=== PATIENT | female | born 1970 | race Caucasian/White ===

== ENCOUNTER 2017-05-28 21:26 | Emergency (ER) | payer MEDICAID, OTHER ==
[~2017-05-28] VITALS: Ht 167.6 cm; Wt 55.0 kg
[~2017-05-28 21:26] MED LIST: ALL220TA PO; DICL-86 PO; LORT5TAB PO
[2017-05-28 21:28] VITALS: BP 132/91; PULSE 125; RESP 18; TEMP 99.4; O2SAT 97
[2017-05-28 21:44] VITALS: BP 126/82; PULSE 95; RESP 20; O2SAT 97
[2017-05-28] MEDS ORDERED: ONDANSETRON ODT 4 MG TAB PO ONE (23:30)
[2017-05-28] MEDS ORDERED: HYDROmorphone HCL PF 1 MG/ML VIAL IM ONE (23:30)
--- NOTE | 2017-05-28 23:33 | PD ---
HPI Chief Complaint: Injury Time Seen by Provider: 23:31 Travel History International Travel<30 days: No Contact w/Intl Traveler<30days: No Traveled to known affect area: No History of Present Illness HPI 46-year-old white female right-hand dominant presents emergency Department with complaints of right shoulder pain after injuring her right shoulder her dogs at home this evening. She states that she's unsure of exactly how it happened but she injured her shoulder the 2 dogs. She does report crepitus in her shoulder. She states the pain is severe. Worse with movement. She has some relief with elevating her arm up and remaining still. She denies any numbness, tingling or weakness. No injury to her head, neck or back. PFSH Past Medical History Blood Disorders: Yes (ANEMIA) Cancer: No Cardiovascular Problems: No Diabetes: No Endocrine: No Glaucoma: No Genitourinary: No Hepatitis: No Hiatal Hernia: No Hypertension: No Immune Disorder: No Musculoskeletal: No Reproductive: No Respiratory: No Seizures: Yes ( A CHILD) Thyroid Disease: No Tetanus Vaccination: > 5 Years Influenza Vaccination: No ?: Not LMP: few months : 2 Para: 2 Past Surgical History Abdominal Surgery: Yes (APPENDECTOMY) Appendectomy: Yes (2007) Cardiac Surgery: No Ear Surgery: No Endocrine Surgery: No Eye Surgery: No Genitourinary Surgery: No Gynecologic Surgery: No Oral Surgery: Yes (EGD) Pacemaker: No Thoracic Surgery: No Other Surgery: Yes Social History Alcohol Use: Yes (OCCASIONALLY) Tobacco Use: Yes (OCCASIONALLY) Substance Use: No Allergies-Medications (Allergen,Severity, Reaction): Coded Allergies: No Known Allergies (Verified , 05/28/17) Reported Meds & Prescriptions Reported Meds & Active Scripts Active Lortab (Hydrocodone-Acetaminophen) 5-325 Mg Tab 1-2 Tab PO Q6H PRN Review of Systems Except as stated in HPI: all other systems reviewed are Neg Physical Exam Narrative GENERAL: Well-developed, well-nourished in no apparent distress. Nontoxic appearing. Patient smells of EtOH. HEAD: Normocephalic, atraumatic. EYES: Pupils equal round and reactive. Extraocular motions intact. No scleral icterus. No injection or drainage. ENT: Nose clear. Throat without erythema, tonsillar hypertrophy or exudate. Uvula midline. Airway patent. NECK: Trachea midline. Supple, nontender, moves head freely. No central bony tenderness or spasm. CARDIOVASCULAR: Regular rate and rhythm without murmurs, gallops, or rubs. RESPIRATORY: Clear to auscultation. Breath sounds equal bilaterally. No wheezes , rales, or rhonchi. GASTROINTESTINAL: Abdomen soft, non-tender, nondistended. No hepato-splenomegaly , or palpable masses. No guarding. EXTREMITIES: No clubbing, cyanosis. Examination of the right upper extremity reveals tenderness and ecchymosis to the mid- lateral clavicular region. She complains of pain out into the glenohumeral joint. She is unwilling to manipulate the joint. No pain in the humerus, elbow, forearm, wrist or hand. She has intact median/ulnar/renal nerves. The skin is intact. The left upper extremity as well as lower extremities are without localizing bony tenderness or deformity. BACK: Nontender without deformity. No flank tenderness. NEUROLOGICAL: Awake, alert and oriented x 3 .Cranial nerves grossly intact. Motor and sensory grossly within normal limits. Normal speech. Data Data Last Documented VS Vital Signs Date Time Temp Pulse Resp B/P Pulse Ox O2 Delivery O2 Flow Rate FiO2 05/28/17 21:44 95 20 126/82 97 05/28/17 21:28 99.4 Room Air Orders Clavicle (05/28/17 23:29) Shoulder, Limited(2vws) (05/28/17 23:29) Ice/Cold Pack (05/28/17 23:29) Splint Or Brace Apply/Monitor (05/28/17 23:29) Hydromorphone Pf Inj (Dilaudid Pf Inj) (05/28/17 23:30) Ondansetron Odt (Zofran Odt) (05/28/17 23:30) Sling Cradle Arm (05/28/17 ) MDM Medical Decision Making Medical Screen Exam Complete: Yes Emergency Medical Condition: Yes Medical Record Reviewed: Yes Interpretation(s) Right shoulder: Patient has a displaced distal third clavicular fracture. The glenohumeral joint is intact. Right clavicle: Patient has a displaced third clavicle fracture. Differential Diagnosis MDM: High Differential diagnoses: Fracture, sprain, strain, dislocation, contusion, neurovascular injury Narrative Course Patient given Dilaudid 1 mg IM and Zofran 4 mg by mouth, ice pack and sling. X- ray of the right clavicle and shoulder. X-ray of the right shoulder reveals a distal third mildly displaced clavicular fracture. Patient is placed in a sling. She is aware of the clinical findings and her need for follow-up with orthopedics. Patient given mandatory follow-up. This is right clavicular fracture Diagnosis Primary Impression: Closed right clavicular fracture Qualified Code: S42.031A - Closed displaced fracture of acromial end of right clavicle, initial encounter Patient Instructions: General Instructions, Narcotic given in the ED Additional Instructions: Rest. Ice packs. 3 Advil every 6 hours. Lortab for moderate to severe pain. Sling. Follow-up with orthopedics within the next 3-7 days. Return to the ER for emergencies. Med/Other Pt SpecificInfo: Prescription(s) given Scripts Hydrocodone-Acetaminophen (Lortab)5-325 Mg Tab1-2 Tab PO Q6H PRN (PAIN) #30 TAB Prov:Lashell Moon DO 05/29/17 Disposition: 01 DISCHARGE HOME Condition: Stable Antonio Wilde May 28, 2017 23:33
[2017-05-29] MEDS ORDERED: HYDR-3533 PO (00:18)
--- NOTE | 2017-05-29 00:35 | RADRPT ---
EXAM DATE/TIME: 05/29/2017 00:09 [facility] COMPARISON: No previous studies available for comparison. INDICATIONS : Pt fell and landed on right shoulder. MEDICAL HISTORY : None. SURGICAL HISTORY : Appendectomy. ENCOUNTER: Initial ACUITY: 1 day PAIN SCORE: 8/10 LOCATION: Right Clavicle FINDINGS: There is a fracture of the distal right clavicle with one shaft width inferior displacement of the di stal fracture fragment. The acromioclavicular joint is intact. The glenohumeral joint is intact. CONCLUSION: 1. Fracture right clavicle Scottie Childress MD on May 29, 2017 at 0:32 Board Certified Radiologist. This report was verified electronically.
--- NOTE | 2017-05-29 00:35 | RADRPT ---
EXAM DATE/TIME: 05/29/2017 00:11 [facility] COMPARISON: No previous studies available for comparison. INDICATIONS : Pt fell and landed on right shoulder. MEDICAL HISTORY : None. SURGICAL HISTORY : Appendectomy. ENCOUNTER: Initial ACUITY: 1 day PAIN SCORE: 7/10 LOCATION: Right Shoulder FINDINGS: Right clavicle fracture is present. The acromioclavicular joint is intact. The glenohumeral joint is intact. Bony mineralization is normal. CONCLUSION: 1. Fracture right clavicle Scottie Childress MD on May 29, 2017 at 0:33 Board Certified Radiologist. This report was verified electronically.
[2017-05-29 00:37] VITALS: BP 122/63; RESP 16
== END 2017-05-29 00:38 | disposition home or self-care (01) ==
LOC: NEPD 21:26
DX: S42.031A Displaced fracture of lateral end of right clavicle, initial encounter for closed fracture (principal); X50.0XXA Overexertion from strenuous movement or load, initial encounter; Y92.009 Unspecified place in unspecified non-institutional (private) residence as the place of occurrence of the external cause
CPT/HCPCS: 73000; 73030; 96372; 99284; J1170

== ENCOUNTER 2017-08-03 17:35 | Inpatient (IN) | payer MEDICAID ==
[~2017-08-03] VITALS: Ht 167.6 cm; Wt 58.1 kg
[2017-08-03] VITALS (7 sets, daily range): BP systolic 90–114; BP diastolic 51–66; PULSE 92–103; RESP 16–18; TEMP 98.3–98.8; O2SAT 93–97
[~2017-08-03 17:35] MED LIST changes: -ALL220TA PO; -DICL-86 PO; +HYDR-3533 PO; -LORT5TAB PO
[2017-08-03] MEDS ORDERED: SODIUM CHLORIDE 0.9% FLUSH 10 ML FLUSH IV FLUSH PRN ×2 (18:45→21:45)
--- NOTE | 2017-08-03 18:50 | PD ---
HPI Chief Complaint: Edema Time Seen by Provider: 18:22 Travel History International Travel<30 days: No Contact w/Intl Traveler<30days: No Traveled to known affect area: No History of Present Illness HPI Patient is a 47 year old female with PMH of alcohol abuse presenting with bilateral lower leg edema and swelling in her abdomen. The patient states for the past 10 days her legs have been enlarging and hurting her. Also, the patient states that her "belly looks like she is " and states she knows she is not . She reveals she has loose and yellowish stools. The patient denies nausea, fever, SOB, chest pain, neurological/focal deficits, vomiting, hematemesis, dysphagia, odynophagia, melena, and hematochezia. She states she drinks multiple alcoholic drinks a day. Onset gradual. Timing constant. No dark stool or bloody stool. PMH: Broken right collar bone Social: Multiple drinks a day, smokes tobacco, denies illicit drug use, she states she did take narcotics for her broken collarbone, Traveled to the [facility] in the summer but no other travel outside the country Surgical: appendectomy Meds: Takes NSAIDS on a daily basis PFSH Past Medical History Blood Disorders: Yes (ANEMIA) Cancer: No Cardiovascular Problems: No Diabetes: No Endocrine: No Glaucoma: No Genitourinary: No Hepatitis: No Hiatal Hernia: No Hypertension: No Immune Disorder: No Musculoskeletal: No Reproductive: No Respiratory: No Seizures: Yes ( A CHILD) Thyroid Disease: No ?: Not LMP: DAVID : 2 Para: 2 Past Surgical History Abdominal Surgery: Yes (APPENDECTOMY) Appendectomy: Yes (2007) Cardiac Surgery: No Ear Surgery: No Endocrine Surgery: No Eye Surgery: No Genitourinary Surgery: No Gynecologic Surgery: No Oral Surgery: Yes (EGD) Pacemaker: No Thoracic Surgery: No Other Surgery: Yes Social History Alcohol Use: Yes (DAILY) Tobacco Use: Yes Substance Use: No Allergies-Medications (Allergen,Severity, Reaction): Coded Allergies: No Known Allergies (Verified , 08/03/17) Reported Meds & Prescriptions Reported Meds & Active Scripts Active No Active Prescriptions or Reported Medications Review of Systems Except as stated in HPI: all other systems reviewed are Neg General / Constitutional: No: Fever Psychiatric: Positive: Substance Abuse Physical Exam Narrative GENERAL: Patient's parents and fiance in the room; 47 yo F, moderate distress SKIN: Warm and dry. Mild jaundice HEAD: Atraumatic. Normocephalic. EYES: Pupils equal and round. scleral icterus present. No injection or drainage. ENT: No nasal bleeding or discharge. Mucous membranes pink and moist. NECK: Trachea midline. No JVD. CARDIOVASCULAR: Regular rate and rhythm. RESPIRATORY: No accessory muscle use. Clear to auscultation. Breath sounds equal bilaterally. GASTROINTESTINAL: Abdomen distended, non-tender in all 4 quadrants, No rebound or guarding MUSCULOSKELETAL: Extremities without clubbing, cyanosis. Bilateral lower extremity edema +2. Tender to palpation bilaterally. NEUROLOGICAL: Awake and alert. No obvious cranial nerve deficits. Motor grossly within normal limits. Five out of 5 muscle strength in the arms and legs. Normal speech. No tremors PSYCHIATRIC: Tearful. Labile mood. Data Data Last Documented VS Vital Signs Date Time Temp Pulse Resp B/P (MAP) Pulse Ox O2 Delivery O2 Flow Rate FiO2 08/03/17 19:12 18 97 08/03/17 19:09 103 102/63 (76) Room Air 08/03/17 17:55 98.8 VS reviewed Orders Orders Complete Blood Count With Diff (08/03/17 18:34) Comprehensive Metabolic Panel (08/03/17 18:34) Lipase (08/03/17 18:34) Urinalysis - C+S If Indicated (08/03/17 18:34) Iv Access Insert/Monitor (08/03/17 18:34) Ecg Monitoring (08/03/17 18:34) Oximetry (08/03/17 18:34) Sodium Chloride 0.9% Flush (Ns Flush) (08/03/17 18:45) Alcohol (Ethanol) (08/03/17 18:34) Drug Screen, Random Urine (08/03/17 18:35) Ed Urine Pregnancytest Poc (08/03/17 18:36) Ice/Cold Pack (08/03/17 18:41) Ice/Cold Pack (08/03/17 18:41) Type And Screen (08/03/17 19:01) Red Blood Cells (Rbc) (08/03/17 19:01) Blood Product Administration (08/03/17 19:01) Sodium Chlor 0.9% 250 Ml Inj (Ns 250 Ml (08/03/17 19:15) Ct Abd/Pel W Iv Contrast(Rout) (08/03/17 19:20) Iohexol 350 Inj (Omnipaque 350 Inj) (08/03/17 20:50) Admit Order (Ed Use Only) (08/03/17 21:36) Potassium Chloride (Kcl) (08/03/17 21:45) Labs Laboratory Tests Test 08/03/17 18:45 08/03/17 19:25 White Blood Count 6.2 TH/MM3 Corrected White Blood Count 5.8 TH/MM3 Red Blood Count 1.50 MIL/MM3 Hemoglobin 5.8 GM/DL Hematocrit 17.9 % Mean Corpuscular Volume 119.1 FL Mean Corpuscular Hemoglobin 38.6 PG Mean Corpuscular Hemoglobin Concent 32.4 % Red Cell Distribution Width 24.1 % Platelet Count 106 TH/MM3 Mean Platelet Volume 7.6 FL CBC Comment AUTO DIFF Differential Total Cells Counted 100 Neutrophils % (Manual) 47 % Lymphocytes % 41 % Monocytes % 8 % Eosinophils % 1 % Basophils % 2 % Neutrophils # (Manual) 2.8 TH/MM3 Metamyelocytes 1 % Nucleated Red Blood Cells 7 /100 WBC Differential Comment FINAL DIFF MANUAL Platelet Estimate LOW Platelet Morphology Comment NORMAL Target Cells 1+ Blood Urea Nitrogen 11 MG/DL Creatinine 0.53 MG/DL Random Glucose 100 MG/DL Total Protein 6.5 GM/DL Albumin 2.7 GM/DL Calcium Level 7.9 MG/DL Alkaline Phosphatase 331 U/L Aspartate Amino Transf (AST/SGOT) 557 U/L Alanine Aminotransferase (ALT/SGPT) 71 U/L Total Bilirubin 4.7 MG/DL Sodium Level 138 MEQ/L Potassium Level 3.2 MEQ/L Chloride Level 101 MEQ/L Carbon Dioxide Level 27.9 MEQ/L Anion Gap 9 MEQ/L Estimat Glomerular Filtration Rate 124 ML/MIN Lipase 622 U/L Ethyl Alcohol Level 355 MG/DL Urine Color DEL Urine Turbidity CLEAR Urine pH 5.5 Urine Specific [place] 1.016 Urine Protein TRACE mg/dL Urine Glucose (UA) 100 mg/dL Urine Ketones NEG mg/dL Urine Occult Blood TRACE Urine Nitrite NEG Urine Bilirubin MOD Urine Leukocyte Esterase NEG Urine RBC 0-3 /hpf Urine Squamous Epithelial Cells 6-8 /hpf Microscopic Urinalysis Comment CULT NOT INDICATED Urine Opiates Screen NEG Urine Barbiturates Screen NEG Urine Amphetamines Screen NEG Urine Benzodiazepines Screen NEG Urine Cocaine Screen NEG Urine Cannabinoids Screen NEG MDM Medical Decision Making Medical Screen Exam Complete: Yes Emergency Medical Condition: Yes Differential Diagnosis cirrhosis, hypoalbuminemia, renal failure, Narrative Course CBC & BMP Diagram 08/03/17 18:45 MCV 118 Total Protein 6.5, Albumin 2.7 L, Calcium Level 7.9 L, Alkaline Phosphatase 331 H, Aspartate Amino Transf (AST/SGOT) 557 H, Alanine Aminotransferase (ALT/SGPT) 71 H, Total Bilirubin 4.7 H AST 557 ALT 71 Lipase 622 Albumin 2.7 Alcohol 355 Drug screen william-negative UA: No UTI CT ab/pel: steatohepatosis Admission for PRBC transfusion Hepatobiliary disease/pancreatitis ? alcoholism No fever or leukocytosis d/w Dr Tran Diagnosis Primary Impression: Hyperbilirubinemia Additional Impressions: Pancreatitis Qualified Codes: K85.20 - Alcohol induced acute pancreatitis without necrosis or infection Anemia Qualified Codes: D64.89 - Other specified anemias Alcoholism Admitting Information Admitting Physician Requests: Admit Scripts No Active Prescriptions or Reported Meds Magdaleno Davis MD Aug 03, 2017 18:49
[2017-08-03 18:52] LABS: MEAN CELL VOLUME 119.1 FL (80.0-100.0); MEAN CORPUSCULAR HEMOGLOBIN 38.6 PG (27.0-34.0); MEAN CORPUSCULAR HGB CONC 32.4 % (32.0-36.0); PLATELET COUNT 106 TH/MM3 (150-450); RED CELL DISTRIBUTION WIDTH 24.1 % (11.6-17.2); WHITE BLOOD COUNT 6.2 TH/MM3 (4.0-11.0)
[2017-08-03 18:58] LABS: HEMO FLAGS AUTO DIFF
[2017-08-03 18:59] LABS: HEMATOCRIT 17.9 % (35.0-46.0)
[2017-08-03 19:02] LABS: CHLORIDE 101 MEQ/L (98-107); POTASSIUM 3.2 MEQ/L (3.5-5.1); SODIUM (NA) 138 MEQ/L (136-145)
[2017-08-03 19:06] LABS: ANION GAP 9 MEQ/L (5-15); BICARBONATE 27.9 MEQ/L (21.0-32.0); BLOOD UREA NITROGEN 11 MG/DL (7-18)
[2017-08-03 19:08] LABS: ALT (GPT) 71 U/L (10-53)
[2017-08-03 19:09] LABS: AST (GOT) 557 U/L (15-37); GLOMERULAR FILTRATION RATE 124 ML/MIN (>89)
[2017-08-03 19:10] LABS: TOTAL BILIRUBIN ADULT 4.7 MG/DL (0.2-1.0)
[2017-08-03 19:11] LABS: ALKALINE PHOSPHATASE 331 U/L (45-117)
[2017-08-03 19:14] LABS: ALCOHOL 355 MG/DL (0-5)
[2017-08-03] MEDS ORDERED: SODIUM CHLOR 0.9% 250 ML INJ 250 ML IV ONE (19:15)
[2017-08-03 19:24] LABS: BASOPHILS 2 % (0-2); CORRECTED NUCLEATED RBC 7 /100 WBC (0-0); CORRECTED WBC 5.8 TH/MM3 (4.0-11.0); EOSINOPHILS 1 % (0-4); METAMYELOCYTES 1 % (0-1); NEUTROPHIL # MANUAL DIFF 2.8 TH/MM3 (1.8-7.7); POLYS (SEG NEUTROPHILS) 47 % (16-70); WBC DIFF SAMPLE 100
[2017-08-03 19:25] LABS: PLATELET ESTIMATE SMEAR LOW (NORMAL); PLATELET MORPHOLOGY NORMAL (NORMAL); TARGET CELLS 1+ (NORMAL)
[2017-08-03 19:26] LABS: SCAN/DIFF FINAL DIFF MANUAL
[2017-08-03 19:39] LABS: GLUCOSE,URINE 100 mg/dL (NEG); KETONE, URINE NEG (NEG); NITRITE,URINE NEG (NEG); PH, URINE 5.5 (5.0-8.5)
[2017-08-03 19:46] LABS: BLOOD, URINE TRACE (NEG)
[2017-08-03 19:52] LABS: URINE COLOR AMBER (YELLW/STRAW)
[2017-08-03 19:55] LABS: COMMENT (UR) CULT NOT INDICATED; CULTURE IF INDICATED CULT NOT INDICATED; RBC, URINE 0-3 /hpf (0-3)
[2017-08-03] MEDS ORDERED: IOHEXOL 350 MG/ML 10 ML VIAL (for RAD DIAG) IVCONTRAST ONE (20:50)
--- NOTE | 2017-08-03 21:20 | RADRPT ---
EXAM DATE/TIME: 08/03/2017 20:34 [facility] COMPARISON: No previous studies available for comparison. INDICATIONS : Abdominal and bilateral lower extremity pain. Distention. IV CONTRAST: 100 cc Omnipaque 350 (iohexol) IV ORAL CONTRAST: No oral contrast ingested. RADIATION DOSE: 5.45 CTDIvol (mGy) MEDICAL HISTORY : None SURGICAL HISTORY : Appendectomy. ENCOUNTER: Initial ACUITY: 2 weeks PAIN SCALE: 4/10 LOCATION: Bilateral upper quadrant TECHNIQUE: Volumetric scanning of the abdomen and pelvis was performed. Using automated exposure control and ad justment of the mA and/or kV according to patient size, radiation dose was kept as low as reasonably achievable to obtain optimal diagnostic quality images. DICOM format image data is available electro nically for review and comparison. FINDINGS: Examination of the lung bases demonstrates no abnormality. No pleural fluid is identified. No pulmona ry nodules are present. There is extensive hepatic steatosis with generalized hepatomegaly. The splee n is normal in size and free of focal defects. The gallbladder and pancreas are unremarkable. No intr ahepatic or extrahepatic ductal dilatation is seen. The adrenal glands and kidneys appear normal bila terally. No hydronephrosis or mass lesions are identified. Examination of the pelvis demonstrates no evidence of free fluid or pelvic mass. No abnormally enlarg ed inguinal or retroperitoneal lymph nodes are present. The bladder is unremarkable. CONCLUSION: 1. Hepatomegaly with severe infiltration. No masses are identified Scottie Childress MD on August 03, 2017 at 21:17 Board Certified Radiologist. This report was verified electronically.
[2017-08-03] MEDS ORDERED: OCTREOTIDE INJ 50 MCG/ML AMP IV PUSH ONE (21:45)
[2017-08-03] MEDS ORDERED: NALOXONE HCL 0.4 MG/ML AMP IV PUSH PRN (21:45)
[2017-08-03] MEDS ORDERED: POTASSIUM CHLORIDE 20 MEQ CONTROLLED RELEASE TAB PO ONE (21:45)
[2017-08-03] MEDS ORDERED: OCTREOTIDE INJ 100 MCG/ML VIAL IV PUSH ONE (21:55)
[2017-08-03] MEDS ORDERED: OCTREOTIDE INJ 500 MCG in SODIUM CHLORID 0.9% 500 ML INJ 499.5 ML IV SCH (22:00)
[2017-08-03] MEDS ORDERED: PANTOPRAZOLE INJ 80 MG in SODIUM CHLORIDE 0.9% INJ 35 ML IV ONE (22:36)
[2017-08-03] MEDS: PANTOPRAZOLE INJ 80 MG in SODIUM CHLORIDE 0.9% INJ 100 ML IV SCH (22:57)
[2017-08-04] VITALS (13 sets, daily range): BP systolic 83–125; BP diastolic 51–80; PULSE 78–104; RESP 16–20; TEMP 97.4–98.6; O2SAT 95–100
--- NOTE | 2017-08-04 01:35 | RADRPT ---
EXAM DATE/TIME: 08/04/2017 00:32 [facility] COMPARISON: CLAVICLE RIGHT, May 29, 2017, 0:09. SHOULDER RIGHT LTD (2VWS), May 29, 2017, 0:11. INDICATIONS : Shortness of breath. MEDICAL HISTORY : None. SURGICAL HISTORY : None. ENCOUNTER: Initial ACUITY: 1 day PAIN SCORE: 0/10 LOCATION: Bilateral chest FINDINGS: Lungs are focally clear. No pleural effusion is evident. Cardiomediastinal contours are satisfactory. There's been little interval healing of a right clavicle fracture. CONCLUSION: No acute disease Celestine Moreno MD on August 04, 2017 at 1:33 Board Certified Radiologist. This report was verified electronically.
[2017-08-04 06:33] LABS: MEAN CELL VOLUME 116.3 FL (80.0-100.0); MEAN CORPUSCULAR HEMOGLOBIN 38.5 PG (27.0-34.0); MEAN CORPUSCULAR HGB CONC 33.2 % (32.0-36.0); PLATELET COUNT 87 TH/MM3 (150-450); RED BLOOD COUNT 1.41 MIL/MM3 (4.00-5.30); RED CELL DISTRIBUTION WIDTH 26.9 % (11.6-17.2); WHITE BLOOD COUNT 4.8 TH/MM3 (4.0-11.0)
[2017-08-04 06:40] LABS: POTASSIUM 3.2 MEQ/L (3.5-5.1)
[2017-08-04 06:43] LABS: HEMO FLAGS AUTO DIFF
[2017-08-04 06:47] LABS: HEMATOCRIT 16.4 % (35.0-46.0)
[2017-08-04 07:36] LABS: CORRECTED NUCLEATED RBC 5 /100 WBC (0-0); CORRECTED WBC 4.6 TH/MM3 (4.0-11.0); METAMYELOCYTES 1 % (0-1); NEUTROPHIL # MANUAL DIFF 3.2 TH/MM3 (1.8-7.7); POLYS (SEG NEUTROPHILS) 68 % (16-70); WBC DIFF SAMPLE 100
[2017-08-04 07:37] LABS: TARGET CELLS 2+ (NORMAL)
[2017-08-04 07:38] LABS: PLATELET ESTIMATE SMEAR LOW (NORMAL); PLATELET MORPHOLOGY NORMAL (NORMAL); SCAN/DIFF FINAL DIFF MANUAL
[2017-08-04 07:39] LABS: CALCIUM-PROTEIN CORRECTED 7.8 MG/DL (8.5-10.1)
[2017-08-04] MEDS: PANTOPRAZOLE INJ 80 MG in SODIUM CHLORIDE 0.9% INJ 100 ML IV SCH ×2 (09:24→23:36)
[2017-08-04] MEDS: SODIUM CHLORIDE 0.9% FLUSH 10 ML FLUSH IV FLUSH SCH ×2 (09:25→21:00)
--- NOTE | 2017-08-04 12:42 | HHI.HP ---
[facility] No Primary Care Physician Admission Diagnosis Anemia; Pancreatitis; HypoK; Alcoholism; Steatohepatosis Diagnoses: Chief Complaint: Abdominal pain Travel History International Travel<30 Days: No Contact w/Intl Traveler <30 Da: No Traveled to Known Affected Are: No History of Present Illness This patient is a pleasant 47 show female with minimal past history but drinks quite a bit of liquor daily for at least a decade. She has been with increased abdominal pain for the last 10 days and has associated lower extremity swelling improved with ice. She also has complained of abdominal fullness and distention. She tried to take some ibuprofen and Tums without relief. She has not had any fevers or chills but has been very fatigued. She notes no intestinal bleeding either by emesis or by bowel in the last 10 days, however she did have episode of dark tarry stools while in the hospital. Her hemoglobin has been quite low and actually was 5.8 on arrival. She was supposed to be getting a blood transfusion but felt lightheaded within 10 minutes of the blood transfusion beginning. There is no fever or chills but there was a concern for a transfusion reaction. Patient is agreeable to try again and this is most appropriate given the patient's severe anemia. She is admitted to the hospital for further evaluation of abdominal pain with anemia in a patient with known alcohol dependency. She has also an elevated lipase which may represent some pancreatitis. She has never had this problem before and has not been in the hospital for this. Review of Systems Constitutional: COMPLAINS OF: Fatigue, DENIES: Diaphoretic episodes, Fever, Weight gain, Weight loss, Chills, Dizziness, Change in appetite, Night Sweats Endocrine: DENIES: Abnorml menstrual pattern, Heat/cold intolerance, Polydipsia , Polyuria, Polyphagia Eyes: DENIES: Blurred vision, Diplopia, Eye inflammation, Eye pain, Vision loss , Photosensitivity, Double Vision Ears, nose, mouth, throat: DENIES: Tinnitus, Hearing loss, Vertigo, Nasal discharge, Oral lesions, Throat pain, Hoarseness, Ear Pain, Running Nose, Epistaxis, Sinus Pain, Toothache, Odynophagia Respiratory: DENIES: Apneas, Cough, Snoring, Wheezing, Hemoptysis, Sputum production, Shortness of breath Cardiovascular: COMPLAINS OF: Lower Extremity Edema, DENIES: Chest pain, Palpitations, Syncope, Dyspnea on Exertion, PND, Orthopnea, Claudication Gastrointestinal: COMPLAINS OF: Abdominal pain, Black stools Genitourinary: DENIES: Abnormal vaginal bleeding, Dysmenorrhea, Dyspareunia, Sexual dysfunction, Urinary frequency, Urinary incontinence, Urgency, Hematuria , Dysuria, Nocturia, Vaginal discharge Musculoskeletal: DENIES: Joint pain, Muscle aches, Stiffness, Joint Swelling, Back pain, Neck pain Integumentary: DENIES: Abnormal pigmentation, Pruritus, Rash, Nail changes, Breast masses, Breast skin changes, Nipple discharge Hematologic/lymphatic: DENIES: Bruising, Lymphadenopathy Immunologic/allergic: DENIES: Eczema, Urticaria Neurologic: DENIES: Abnormal gait, Headache, Localized weakness, Paresthesias, Seizures, Speech Problems, Tremor, Poor Balance Psychiatric: DENIES: Anxiety, Confusion, Mood changes, Depression, Hallucinations, Agitation, Suicidal Ideation, Homicidal Ideation, Delusions Except as stated in HPI: all other systems reviewed are Neg Past Family Social History Past Medical History Denies Past Surgical History Appendectomy Patellar surgery Reported Medications Denies prescription medications Allergies: Coded Allergies: No Known Allergies (Verified , 08/03/17) Active Ordered Medications Reviewed in the EMR Family History Mother is alive and well, father at 70 and had a stroke and heart attack Social History but lives with her current fianc, not working, drinks vodka daily for the last 10 years, tobacco half a pack daily for the last 10 years at least Physical Exam Vital Signs Vital Signs Date Time Temp Pulse Resp B/P (MAP) Pulse Ox O2 Delivery O2 Flow Rate FiO2 08/04/17 12:00 98.4 87 18 122/77 (92) 96 08/04/17 08:00 98.0 81 18 125/80 (95) 96 08/04/17 05:30 97.9 83 20 108/77 (87) 95 08/04/17 05:09 97.4 77 16 117/66 (83) 100 08/04/17 03:00 80 16 97/65 (76) 99 Nasal Cannula 2.00 08/04/17 01:00 82 18 93/51 (65) 100 Nasal Cannula 2.00 08/04/17 00:45 82 18 83/58 (66) 100 Nasal Cannula 2.00 08/04/17 00:30 18 100 Nasal Cannula 2.00 08/04/17 00:30 78 18 93/54 (67) 99 Nasal Cannula 2.00 08/04/17 00:15 98.0 82 20 95/53 (67) 99 Nasal Cannula 2.00 08/04/17 00:10 97.5 98 20 102/56 98 08/04/17 00:10 97.5 98 20 102/56 (71) 98 Room Air 08/04/17 00:01 104 20 101/60 (74) 98 Room Air 08/03/17 23:46 102 18 100/52 (68) Room Air 08/03/17 23:31 98.3 98 18 104/63 (77) 96 Room Air 08/03/17 22:21 92 18 90/51 (64) 93 Room Air 08/03/17 21:00 94 18 101/64 (76) 94 Room Air 08/03/17 19:12 18 97 08/03/17 19:09 103 18 102/63 (76) 97 Room Air 08/03/17 18:48 96 08/03/17 17:55 98.8 101 16 114/66 (82) 97 Physical Exam GENERAL: well-developed s a well-nourished, well-developed patient, complaining of pain in the abdomen and feet SKIN: Jaundice HEAD: Atraumatic. Normocephalic. No temporal or scalp tenderness. EYES: Pupils equal round and reactive. Extraocular motions intact. Mildly icteric. No injection or drainage. ENT: Nose without bleeding, purulent drainage or septal hematoma. Throat without erythema, tonsillar hypertrophy or exudate. Uvula midline. Airway patent. NECK: Trachea midline. No JVD or lymphadenopathy. Supple, nontender, no meningeal signs. CARDIOVASCULAR: Regular rate and rhythm without murmurs, gallops, or rubs. RESPIRATORY: Clear to auscultation. Breath sounds equal bilaterally. No wheezes , rales, or rhonchi. GASTROINTESTINAL: Abdomen soft, non-tender, is distended I do not appreciate a fluid wave, good bowel sounds gross hepatomegaly, or palpable masses. No guarding. MUSCULOSKELETAL: Extremities without clubbing, cyanosis, or edema. No joint tenderness, effusion, or edema noted. No calf tenderness. Negative Homans sign bilaterally. NEUROLOGICAL: Awake and alert. Cranial nerves II through XII intact. Motor and sensory grossly within normal limits. Five out of 5 muscle strength in all muscle groups. Normal speech. Laboratory Laboratory Tests Test 08/03/17 18:45 08/03/17 19:25 08/04/17 06:05 White Blood Count 6.2 4.8 Corrected White Blood Count 5.8 4.6 Red Blood Count 1.50 1.41 Hemoglobin 5.8 5.4 Hematocrit 17.9 16.4 Mean Corpuscular Volume 119.1 116.3 Mean Corpuscular Hemoglobin 38.6 38.5 Mean Corpuscular Hemoglobin Concent 32.4 33.2 Red Cell Distribution Width 24.1 26.9 Platelet Count 106 87 Mean Platelet Volume 7.6 7.8 CBC Comment AUTO DIFF AUTO DIFF Differential Total Cells Counted 100 100 Neutrophils % (Manual) 47 68 Lymphocytes % 41 26 Monocytes % 8 5 Eosinophils % 1 Basophils % 2 Neutrophils # (Manual) 2.8 3.2 Metamyelocytes 1 1 Nucleated Red Blood Cells 7 5 Differential Comment FINAL DIFF MANUAL FINAL DIFF MANUAL Platelet Estimate LOW LOW Platelet Morphology Comment NORMAL NORMAL Target Cells 1+ 2+ Blood Urea Nitrogen 11 10 Creatinine 0.53 0.53 Random Glucose 100 86 Total Protein 6.5 6.2 Albumin 2.7 Calcium Level 7.9 7.3 Alkaline Phosphatase 331 Aspartate Amino Transf (AST/SGOT) 557 Alanine Aminotransferase (ALT/SGPT) 71 Total Bilirubin 4.7 Sodium Level 138 139 Potassium Level 3.2 3.2 Chloride Level 101 102 Carbon Dioxide Level 27.9 26.0 Anion Gap 9 11 Estimat Glomerular Filtration Rate 124 124 Lipase 622 Ethyl Alcohol Level 355 Urine Color DEL Urine Turbidity CLEAR Urine pH 5.5 Urine Specific [place] 1.016 Urine Protein TRACE Urine Glucose (UA) 100 Urine Ketones NEG Urine Occult Blood TRACE Urine Nitrite NEG Urine Bilirubin MOD Urine Leukocyte Esterase NEG Urine RBC 0-3 Urine Squamous Epithelial Cells 6-8 Microscopic Urinalysis Comment CULT NOT INDICATED Urine Opiates Screen NEG Urine Barbiturates Screen NEG Urine Amphetamines Screen NEG Urine Benzodiazepines Screen NEG Urine Cocaine Screen NEG Urine Cannabinoids Screen NEG Protein Corrected Calcium 7.8 Result Diagram: 08/04/1760408/04/17604 Imaging Last Impressions Chest X-Ray 08/04/17 0000 Signed Impressions: Service Date/Time: Friday, August 04, 2017 00:32 - CONCLUSION: No acute disease Celestine Moreno MD Abdomen/Pelvis CT 08/03/17 1920 Signed Impressions: Service Date/Time: Thursday, August 03, 2017 20:34 - CONCLUSION: 1. Hepatomegaly with severe infiltration. No masses are identified MD Rc Bearden VTE Risk Assessment Caprinortega VTE Risk Assessment: Mod/High Risk (score >= 2) VTE Pharm Contraindication: Active bleeding Caprini Risk Assessment Model Point Value = 1 Point Value = 2 Point Value = 3 Point Value = 5 Age 41-60 Minor surgery BMI > 25 kg/m2 Swollen legs Varicose veins or History of unexplained or recurrent spontaneous Oral contraceptives or hormone replacement Sepsis (< 1 month) Serious lung disease, including pneumonia (< 1 month) Abnormal pulmonary function Acute myocardial infarction Congestive heart failure (< 1 month) History of inflammatory bowel disease Medical patient at bed rest Age 61-74 Arthroscopic surgery Major open surgery (> 45 min) Laparoscopic surgery (> 45 min) Malignancy Confined to bed (> 72 hours) Immobilizing plaster cast Central venous access Age >= 75 History of VTE Family history of VTE Factor V Leiden Prothrombin [id number] Lupus anticoagulant Anticardiolipin antibodies Elevated serum homocysteine Heparin-induced thrombocytopenia Other congenital or acquired thrombophilia Stroke (< 1 month) Elective arthroplasty Hip, pelvis, or leg fracture Acute spinal cord injury (< 1 month) Prophylaxis Regimen Total Risk Factor Score Risk Level Prophylaxis Regimen 0-1 Low Early ambulation 2 Moderate Order ONE of the following: *Sequential Compression Device (SCD) *Heparin 5000 units SQ BID 3-4 Higher Order ONE of the following medications: *Heparin 5000 units SQ TID *Enoxaparin/Lovenox 40 mg SQ daily (WT < 150 kg, CrCl > 30 mL/min) *Enoxaparin/Lovenox 30 mg SQ daily (WT < 150 kg, CrCl > 10-29 mL/min) *Enoxaparin/Lovenox 30 mg SQ BID (WT < 150 kg, CrCl > 30 mL/min) AND/OR *Sequential Compression Device (SCD) 5 or more Highest Order ONE of the following medications: *Heparin 5000 units SQ TID (Preferred with Epidurals) *Enoxaparin/Lovenox 40 mg SQ daily (WT < 150 kg, CrCl > 30 mL/min) *Enoxaparin/Lovenox 30 mg SQ daily (WT < 150 kg, CrCl > 10-29 mL/min) *Enoxaparin/Lovenox 30 mg SQ BID (WT < 150 kg, CrCl > 30 mL/min) AND *Sequential Compression Device (SCD) Assessment and Plan Problem List: (1) Anemia ICD Code: D64.9 - Anemia, unspecified Status: Acute Plan: resume blood transfusion I doubt blood transfusion reaction, there is no fever, hives or shortness of breath, patient symptoms may be due to hypo-tension which was pre-existing as well as her severe anemia requiring transfusion Follow-up with hematology work up for anemia in progress although likely due to gi acute blood loss (dark stools in bathroom), protonix, octreotide (2) Alcoholism ICD Code: F10.20 - Alcohol dependence, uncomplicated Status: Acute Plan: ciwa, thiamine,multivitamin (3) Abdominal pain ICD Code: R10.9 - Unspecified abdominal pain Plan: iv dilaudid for pain, ct, IVF, bowel rest may be due to gi bleed/gastritis/duodenitis/pancreatitis severe hepatomegaly on ct repeat lipase nakul (4) Tobacco dependency ICD Code: F17.200 - Nicotine dependence, unspecified, uncomplicated Plan: Abstinence advised nicotine patch as needed (5) LFT elevation ICD Code: R79.89 - Other specified abnormal findings of blood chemistry Plan: likely to etoh, check hep panel follow trend (6) Elevated lipase ICD Code: R74.8 - Abnormal levels of other serum enzymes Plan: may be due to pancreatitis v gi bleed follow trend (7) Thrombocytopenia ICD Code: D69.6 - Thrombocytopenia, unspecified Plan: Likely due to splenic sequestration from alcoholism Follow trend No need to transfuse platelets at this time we'll follow for further needs (8) Foot pain ICD Code: M79.673 - Pain in unspecified foot Plan: Etiology unclear, may be inflammatory versus neuropathic Continue follow-up Patient using ice for good relief Physician Certification 2 Midnight Certification Type: Admission for Inpatient Services Order for Inpatient Services The services are ordered in accordance with Medicare regulations or non- Medicare payer requirements, as applicable. In the case of services not specified as inpatient-only, they are appropriately provided as inpatient services in accordance with the 2-midnight benchmark. Estimated LOS (days): 3 3 days is the estimated time the patient will need to remain in the hospital, assuming treatment plan goals are met and no additional complications. Post-Hospital Plan: Home (3) Problem Qualifiers (1) Anemia: Qualified Codes: D64.89 - Other specified anemias Sita Gaspar MD Aug 04, 2017 12:42
[2017-08-04] MEDS ORDERED: PANTOPRAZOLE SODIUM 40 MG VIAL IV PUSH SCH (12:45)
[2017-08-04] MEDS ORDERED: HYDROmorphone HCL PF 1 MG/ML VIAL IV PUSH ONE (12:45)
[2017-08-04] MEDS: OCTREOTIDE INJ 500 MCG in SODIUM CHLORID 0.9% 500 ML INJ 499.5 ML IV SCH (12:49)
[2017-08-04] MEDS ORDERED: NICOTINE 14 MG/24 HR PATCH T-DERMAL PRN (13:15)
[2017-08-04] MEDS ORDERED: REMOVE OLD NICODERM (NICOTINE) PATCH T-DERMAL PRN (14:00)
[2017-08-04] MEDS ORDERED: PEG (High)/E-LYTE SOLN 4000 ML BTL PO ONE (18:45)
[2017-08-04] MEDS ORDERED: HYDROCORTISONE SOD SUCCINATE 100 MG VIAL IV PUSH PRN (19:15)
[2017-08-04] MEDS ORDERED: diphenhydrAMINE HCL ELIXIR 12.5 MG/5 ML CUP PO PRN (19:30)
[2017-08-04] MEDS ORDERED: CETIRIZINE HCL 10 MG TAB PO ONE (19:30)
--- NOTE | 2017-08-04 19:39 | MB ---
cc: VALENTINA NEWSOME M.D. DATE OF CONSULTATION 08/04/17 DATE OF [address] Gaspar REASON FOR CONSULTATION Anemia and liver disease. HISTORY OF PRESENT ILLNESS Ms. Abrams is a 47-year-old lady with history of alcohol use, came to the emergency room with increased abdominal pain, increased abdominal distension along with a lower extremity edema, improved with ice. Also, she reports taking a large amount of ibuprofen at times without ___. She denies any fever or chills, weight loss or weight gain. She denies any melena, hematemesis, hematochezia, epistaxis, bri or metrorrhagia. The patient had an episode of dark tarry stool when in the hospital. The patient does not follow up with her regular doctor. She did not have any blood transfusions in the past, was never told that she has anemia. Her father recently from colon cancer. She did have an endoscopy and colonoscopy 5 or 6 years ago. According to her everything was normal. The reason for her having this endoscopy and colonoscopy was because of abdominal pain and questionable appendicitis. She was found to have severe anemia, was given blood transfusion but apparently she had reaction and since then transfusion was stopped, awaiting hematology consultation for clearance. PAST MEDICAL HISTORY Appendectomy, patellar surgery, collar bone fracture. MEDICATIONS None at home. ALLERGIES No known allergies. FAMILY HISTORY Colon cancer father. SOCIAL HISTORY Drinks daily for the last 10 years. Smokes half-a-pack of cigarettes daily. Denies any drug use. REVIEW OF SYSTEMS CONSTITUTIONAL: She denies any fever or chills, weight loss or weight gain. ENT: No alteration in baseline hearing or visual acuity. PULMONARY: Denies any chest pain, shortness of breath. GASTROINTESTINAL: As above. GENITOURINARY: Denies dysuria, hematuria. HEMATOLOGIC: Denies any history of previous anemia or bleeding disorder. SKIN: No alteration in baseline skin lesion. NEUROLOGIC: No history of TIA or CVA kind of symptoms. PHYSICAL EXAMINATION GENERAL: On clinical exam she is sitting comfortable in bed in no acute distress. She is jaundiced and pale. Slight periorbital edema. VITAL SIGNS: Temperature 98.6, pulse 79, respiration 18, blood pressure 108/75 saturation 96. HEENT: PERRLA. Jaundice. NECK: No JVD. No lymphadenopathy. CHEST: Clear to auscultation and palpation. CARDIOVASCULAR: S1-S2. No murmur. ABDOMEN: Abdomen is soft, mildly distended. Bowel sounds are present. CALL CENTER TRAINER: Awake, alert, oriented x3. No focal signs identified. EXTREMITIES: 2+ pedal edema. LABORATORY DATA Her labs are suggestive of potassium of 3.2, total bilirubin 4.7, AST 557, ALT 71 and lipase 622, albumin 2.7. Her hemoglobin on admission 5.8, repeat 5.4. Her platelets 106, MCV 119, white count 6.2. IMAGING STUDIES She had a CT abdomen and pelvis which shows severe fatty infiltration of the liver. IMPRESSION Ms. Abrams is a 47-year-old lady admitted to the hospital with increased abdominal girth, pedal edema most likely secondary to portal hypertension secondary to alcoholic liver disease. Severe anemia most likely secondary to portal hypertension. No indication of active bleed at this time or any other intra-abdominal pathology. Elevated MCV, most likely secondary to alcohol use. RECOMMENDATIONS Clear liquid diet, blood transfusion as recommended by hematology. Upper endoscopy and colonoscopy will be scheduled while the patient will be transfused. She is high risk for anesthesia at this time. Iron level, vitamin B12 and folic acid, supportive care. Monitor LFTs closely. Further recommendation will depend on the patient's clinical status and the above results. Await clearance from hematology. Thank you again. I will continue to follow the patient along with you. Valentina Newsome MD BSB/EO /6:00 PM /7:18 PM
--- NOTE | 2017-08-04 20:27 | MB ---
cc: PROMISE BOLAND M.D.,TINA ELIAS,MICAH George M.D. DATE OF CONSULTATION: 08/04/[address] Tina Gaspar CHIEF COMPLAINT Dr. Gaspar requested consultation for Ms. Abrams regarding questionable transfusion reaction. HISTORY OF PRESENT ILLNESS Ms. Abrams is a 47-year-old woman with history of alcohol abuse. She presents with bilateral lower extremity edema, feet pain, swelling in her abdomen and abdominal distension. She has multiple drinks a day. She denies any bleeding, no melena, no bright red blood per rectum. She had a normal blood pressure. She is mildly tachycardiac, afebrile, with a hemoglobin of 5.8, platelet count 106,000. She had evidence of pancreatitis with elevated lipase. CT scan of the abdomen and pelvis shows steatosis. In stretch machine operator, she was being transfused a unit of packed red cells. She describes being sleepy. She became very sleeping and "fell out." This was interpreted as a reaction to the transfusion. The transfusion was discontinued. Blood bank testing was performed. She is O positive, pretransplant antibody screen was negative, JASE was negative. Post transplant antibody screen was negative and post transplant JASE was negative. She feels well. On further questioning she denies any hives. She denies any itching. She has fatigue. She denies any overt bleeding. She has not been this anemic before. Previous CBC from 2009 was normal. Her hemoglobin was 12.5. Her hemoglobin on admission was 5.8. Hemoglobin at the time of the consultation was 5.4. She is thrombocytopenic with platelet count 106,000 and follow up platelet count is 87,000. Other laboratory parameters include a lipase 622, albumin is decreased at 2.7. Liver function AST is greater than ALT, total bilirubin is 4.7. Potassium is low of 3.2. PT/PTT is not available. Ammonia is normal. She has had no transfusion previously. We discussed our plans to try to transfuse her again as her hemoglobin is significantly low at 5.4. It would help her to tolerate endoscopic procedure. She was agreeable to try. PAST MEDICAL HISTORY 1. Alcohol abuse 2. Steatosis 3. Symptomatic anemia. 4. Thrombocytopenia. PAST SURGICAL HISTORY Appendectomy. Patellar surgery. FAMILY HISTORY Mother is alive and well. Father at age 70 with heart attack and stroke. SOCIAL HISTORY She is , lives with her fiance. She drinks vodka daily for the past 10 years. She smokes half pack a day for at least ten years. She is not currently employed. ALLERGIES NO KNOWN DRUG ALLERGIES. CURRENT MEDICATIONS 1. Pantoprazole. 2. Nicotine patch. 3. Octreotide. PHYSICAL EXAMINATION VITAL SIGNS: Temperature 98.6, heart rate 79, respiratory rate 18, blood pressure 108/75. GENERAL: Ms. Abrams is a pale appearing woman with pallor. She is jaundice. HEENT: Her pupils are round, reactive to light and accommodation. Oropharynx is clear. Neck is supple. Lungs: Clear. Cardiovascular: Reveals normal rate and rhythm. Abdomen: Mildly distended. Lower extremities: No edema, no swelling. Subjective pain, good pulses. Neurologic: Nonfocal. LABORATORY DATA: Significant for hemoglobin of 5.4. ASSESSMENT AND PLAN: Ms. Abrams is a 47 year-old woman with history of alcohol abuse, evidence of hepatomegaly and liver infiltration. The pancreas appears to be unremarkable despite the increase in lipase. The spleen is normal in size. We discussed concern for GI loss of blood and thus the hemoglobin of 5.8. The chronicity of this is not known. The last CBC was from 2009. We discussed transfusing her 2 units of packed red cells overnight so that she may be able to tolerate endoscopic procedure to determine the nature of her anemia. It seems to be macrocytic in nature. She describes pain in her feet. Serum B12 level will be added. I will empirically treat her with B12. She denies any paresthesias, numbness and tingling in the feet, severe pain. We discussed plans to monitor closely for blood transfusion reaction. I am confident that we should be able to transfuse the two units of packed red cells slowly. Premedication with Tylenol and Benadryl at half the dose. Zantac is offered as an antihistamine. I will reserve steroid with hydrocortisone pending blood transfusion reaction or any reaction. We will monitor closely. Nursing will be alerted of symptoms to look out for. Her questions were answered to her satisfaction. The case was discussed with Dr. Boland. MD THELMA Guy/ELOISA /6:50 PM /8:04 PM
[2017-08-04] MEDS: ACETAMINOPHEN 325 MG TAB PO PRN (20:43)
[2017-08-04] MEDS: HYDROmorphone HCL PF 1 MG/ML VIAL IV PUSH PRN (20:51)
[2017-08-05] VITALS (31 sets, daily range): BP systolic 98–143; BP diastolic 45–86; PULSE 50–128; RESP 11–34; TEMP 97.4–99.2; O2SAT 86–100
[2017-08-05] MEDS: ACETAMINOPHEN 325 MG TAB PO PRN (00:42)
[2017-08-05] MEDS: HYDROmorphone HCL PF 1 MG/ML VIAL IV PUSH PRN ×2 (00:43→10:45)
[2017-08-05] MEDS ORDERED: MAGNESIUM CITRATE SOLN 300 ML BTL PO ONE ×2 (00:45→01:00)
[2017-08-05] MEDS ORDERED: LORazepam 2 MG/ML VIAL IV PUSH ONE (03:30)
[2017-08-05] MEDS ORDERED: LORazepam 2 MG/ML VIAL IV PUSH PRN ×5 (03:30)
[2017-08-05] MEDS ORDERED: FLUMAZENIL 0.5 MG/5 ML VIAL IV PUSH PRN (03:30)
[2017-08-05] MEDS ORDERED: LORazepam 1 MG TAB PO PRN (03:30)
[2017-08-05] MEDS ORDERED: HALOPERIDOL LACTATE 5 MG/ML AMP IM PRN (03:30)
[2017-08-05] MEDS ORDERED: LORazepam 2 MG TAB PO PRN (03:30)
[2017-08-05 04:12] LABS: HEMATOCRIT 24.9 % (35.0-46.0); MEAN CELL VOLUME 106.1 FL (80.0-100.0); MEAN CORPUSCULAR HGB CONC 33.9 % (32.0-36.0); PLATELET COUNT 95 TH/MM3 (150-450); RED BLOOD COUNT 2.35 MIL/MM3 (4.00-5.30); RED CELL DISTRIBUTION WIDTH 27.7 % (11.6-17.2); WHITE BLOOD COUNT 5.6 TH/MM3 (4.0-11.0)
[2017-08-05 04:15] LABS: HEMO FLAGS AUTO DIFF
[2017-08-05] MEDS: OCTREOTIDE INJ 500 MCG in SODIUM CHLORID 0.9% 500 ML INJ 499.5 ML IV SCH ×3 (04:58→21:03)
[2017-08-05] MEDS: PANTOPRAZOLE INJ 80 MG in SODIUM CHLORIDE 0.9% INJ 100 ML IV SCH ×4 (04:58→23:25)
[2017-08-05 05:27] LABS: BASOPHILS 1 % (0-2); CORRECTED NUCLEATED RBC 3 /100 WBC (0-0); POLYS (SEG NEUTROPHILS) 71 % (16-70); WBC DIFF SAMPLE 100
[2017-08-05 05:28] LABS: PLATELET ESTIMATE SMEAR LOW (NORMAL); PLATELET MORPHOLOGY NORMAL (NORMAL); SCAN/DIFF FINAL DIFF MANUAL
[2017-08-05 06:11] LABS: BICARBONATE 26.9 MEQ/L (21.0-32.0); CALCIUM-PROTEIN CORRECTED 7.5 MG/DL (8.5-10.1); TOTAL BILIRUBIN ADULT 4.2 MG/DL (0.2-1.0)
[2017-08-05] MEDS ORDERED: GLUCAGON 1 MG/ML VIAL OTHER PRN (08:30)
[2017-08-05] MEDS ORDERED: POTASSIUM CHLOR 20 MEQ PREMIX 100 ML IV SCH (08:30)
[2017-08-05] MEDS ORDERED: DEXTROSE 50% IN WATER 50 ML VIAL(D50) IV PUSH PRN (08:30)
[2017-08-05] MEDS: chlordiazePOXIDE 25 MG CAP PO SCH ×3 (08:55→21:06)
[2017-08-05] MEDS: SODIUM CHLORIDE 0.9% FLUSH 10 ML FLUSH IV FLUSH SCH ×2 (09:00→21:04)
[2017-08-05] MEDS: NS + KCL 20 MEQ INJ 1,000 ML IV SCH ×2 (09:01→23:25)
[2017-08-05] MEDS ORDERED: CALCIUM CHLORIDE INJ 1 GM in SODIUM CHLORIDE 0.9% INJ 100 ML IV ONE (10:00)
[2017-08-05 10:06] LABS: BETA HCG QUANT LESS THAN 1 MIU/ML (0-5)
[2017-08-05] MEDS: INSULIN ASPART SUPPLEMENTAL SCALE SQ SCH ×3 (12:00→21:43)
[2017-08-05] MEDS: levETIRAcetam 500 MG TAB PO SCH ×2 (12:40→21:06)
[2017-08-05] MEDS ORDERED: GADODIAMIDE PF 287 MG/ML 10 ML VIAL (for RAD MRI) IVCONTRAST ONE (13:18)
--- NOTE | 2017-08-05 13:45 | RADRPT ---
EXAM DATE/TIME: 08/05/2017 13:10 [facility] COMPARISON: No previous studies available for comparison. INDICATIONS : Seizures. CONTRAST: 10 cc Omniscan (gadodiamide) IV MEDICAL HISTORY : None. SURGICAL HISTORY : Appendectomy. Left Knee, Right Clavicle ENCOUNTER: Subsequent ACUITY: 2 day PAIN SCORE: 0/10 LOCATION: cranial TECHNIQUE: Multiplanar, multisequence MRI of the brain was performed both prior to and following the administrat ion of paramagnetic contrast. FINDINGS: Moderate motion artifact is present with minimal periventricular white matter changes. There is no r estricted diffusion. There is no abnormal contrast enhancement. Temporal lobes are symmetric. Ventricle size is appropri ate. There are no extra-axial fluid collections appreciated. Posterior fossa is unremarkable. CONCLUSION: Negative MRI of the brain without and with contrast. Seizure focus not identified. Melecio Rodgers MD FACR on August 05, 2017 at 13:43 Board Certified Radiologist. This report was verified electronically.
[2017-08-05 14:06] LABS: FREE T4 0.65 NG/DL (0.76-1.46)
--- NOTE | 2017-08-05 15:11 | HHI.GIFU ---
Subjective Remarks Patient was transferred to the ICU because of 2 grand mal seizure overnight, unclear etiology apparently she had seizure when she was a kid, laying in bed comfortably getting EEG now, no sign of active bleeding, Objective Vitals I&O Vital Signs Date Time Temp Pulse Resp B/P (MAP) Pulse Ox O2 Delivery O2 Flow Rate FiO2 08/05/17 14:00 50 08/05/17 13:45 54 12 125/77 (93) 97 08/05/17 12:00 60 08/05/17 12:00 99.2 60 11 117/58 (77) 97 08/05/17 11:00 62 11 112/75 (87) 95 08/05/17 11:00 62 08/05/17 10:00 68 08/05/17 10:00 68 15 119/81 (94) 98 08/05/17 09:00 74 08/05/17 09:00 74 14 117/79 (92) 99 08/05/17 08:00 74 08/05/17 08:00 99.0 74 15 109/73 (85) 92 08/05/17 07:00 71 08/05/17 07:00 08/05/17 07:00 72 13 98/68 (78) 94 08/05/17 06:10 100 Nasal Cannula 2.00 08/05/17 06:00 72 12 105/68 (80) 100 08/05/17 06:00 72 08/05/17 05:21 74 08/05/17 05:00 72 13 104/70 (81) 100 08/05/17 05:00 72 08/05/17 04:41 74 24 136/61 (86) 94 08/05/17 04:40 86 Nasal Cannula 2.00 08/05/17 04:37 128 34 118/45 (69) 86 08/05/17 04:15 95 Room Air 08/05/17 04:14 99.1 80 18 119/75 (90) 96 08/05/17 01:13 16 08/05/17 01:13 16 08/05/17 00:32 98.4 73 20 123/85 98 08/05/17 00:30 97.4 89 20 119/78 (92) 97 08/05/17 00:02 98.4 65 20 139/86 98 08/05/17 00:00 97.4 73 20 123/74 (90) 98 08/05/17 00:00 98 Nasal Cannula 2.00 08/04/17 20:40 97.8 84 20 116/78 98 08/04/17 16:00 98.6 79 18 108/75 (86) 96 I/O 08/04/17 08/04/17 08/04/17 08/05/17 08/05/17 08/05/17 07:00 15:00 23:00 07:00 15:00 23:00 Intake Total 335 ml 585 ml 1342 ml Output Total 600 ml Balance 335 ml 585 ml 742 ml Intake Oral 448 ml IV Total 250 ml 585 ml 349 ml Packed Cells 75 ml 500 ml Blood Product IV Normal Saline Flush 10 ml 45 ml Output Urine Total 600 ml # Voids 3 # Bowel Movements 5 Laboratory Laboratory Tests Test 08/05/17 04:00 08/05/17 09:30 White Blood Count 5.6 Red Blood Count 2.35 Hemoglobin 8.4 Hematocrit 24.9 Mean Corpuscular Volume 106.1 Mean Corpuscular Hemoglobin 36.0 Mean Corpuscular Hemoglobin Concent 33.9 Red Cell Distribution Width 27.7 Platelet Count 95 Mean Platelet Volume 8.2 CBC Comment AUTO DIFF Differential Total Cells Counted 100 Neutrophils % (Manual) 71 Lymphocytes % 19 Monocytes % 9 Basophils % 1 Neutrophils # (Manual) 4.0 Nucleated Red Blood Cells 3 Differential Comment FINAL DIFF MANUAL Platelet Estimate LOW Platelet Morphology Comment NORMAL Blood Urea Nitrogen 13 Creatinine 0.58 Random Glucose 199 Total Protein 6.2 Albumin 2.7 Calcium Level 7.0 Magnesium Level 2.0 Alkaline Phosphatase 271 Aspartate Amino Transf (AST/SGOT) 326 Alanine Aminotransferase (ALT/SGPT) 55 Total Bilirubin 4.2 Sodium Level 133 Potassium Level 3.0 Chloride Level 96 Carbon Dioxide Level 26.9 Anion Gap 10 Estimat Glomerular Filtration Rate 112 Protein Corrected Calcium 7.5 Lipase 529 Erythrocyte Sedimentation Rate 62 Ammonia 16 Vitamin B12 Level 898 Folate 3.3 Free Thyroxine 0.65 Thyroid Stimulating Hormone 3rd Gen 1.470 Human Chorionic Gonadotropin, Quant LESS THAN 1 Physical Exam HEENT: Pupils round and reactive to light; normocephalic; atraumatic; jaundice. Throat is clear. NECK: Neck is supple, no JVD, no lymphadenopathy. CHEST: Chest is clear to auscultation and percussion. CARDIAC: Regular rate and rhythm with no murmur gallop or rubs. ABDOMEN: Soft, nondistended, abdominal discomfort mostly in the right upper quadrant and midepigastric area; no hepatosplenomegaly; bowel sounds are present in all four quadrants. EXTREMITIES: No clubbing, cyanosis, or edema. SKIN: Normal; no rash; jaundice. MASTER LAY OUT SPECIALIST: No focal deficits; alert and oriented times three. Assessment and Plan Plan Ms. Abrams is a 47-year-old lady admitted to the hospital with increased abdominal girth, pedal edema most likely secondary to portal hypertension secondary to alcoholic liver disease. Severe anemia most likely secondary to portal hypertension. No indication of active bleed at this time or any other intra-abdominal pathology. Elevated MCV, most likely secondary to alcohol use. 08-05-17 patient was transferred to the ICU because of grand mal seizure, she stated she had seizure when she was a kid, she denied drinking too much she said she drinks 2-3 drinks daily, she still complaining of abdominal discomfort in the midepigastric and right upper quadrant, severe anemia, elevated liver function test most likely alcohol related RECOMMENDATIONS Elevated liver function tests most likely alcohol liver disease, we'll continue supportive care, GI workup in progress Anemia peptic ulcer disease plan for: EGD in few days may be on Thursday when more stable from neurological standpoint Continue liquid diet Tj Byrd MD Aug 05, 2017 15:11
[2017-08-05] MEDS ORDERED: MIDAZOLAM HCL 2 MG/2 ML VIAL ONE (16:11)
[2017-08-05] MEDS ORDERED: PROPOFOL 200 MG/20 ML AMP IV ONE (16:18)
--- NOTE | 2017-08-05 16:21 | PD.PROCEDR ---
GI Procedure PROCEDURE PERFORMED Upper endoscopy with biopsy, colonoscopy INDICATION FOR PROCEDURE Severe anemia, abdominal pain PROCEDURE: The procedure, risks and benefits were discussed with Ms. Ricardo and informed consent was obtained. Anesthesia sedated her with Diprivan. She was placed in the left lateral decubitus position. EGD: The Pentax videoscope was introduced through the oropharynx and advanced to the second portion of the duodenum under direct visualization. Retroflexion was performed in the stomach biopsy from the antrum. FINDINGS: Severe gastritis with multiple ulcers in the antrum biopsy was done Colonoscopy: The Pentax videoscope was introduced through the rectum and advanced to the terminal ileum. Retroflexion was performed in the rectum. Colonic prep was good FINDINGS: Diverticular disease Otherwise normal ESTIMATED BLOOD LOSS: None SPECIMENS REMOVED: Antrum from gastric ulcer COMPLICATIONS: None IMPRESSION: Multiple ulcers in the duodenum biopsy was done Colon diverticulum PLAN: No alcohol No NSAIDs Protonix 40 mg daily Follow-up biopsy Colonoscopy in 10 years Tj Byrd MD Aug 05, 2017 16:21
--- NOTE | 2017-08-05 18:01 | HHI.PR ---
Subjective Remarks Nursing reports the patient had a seizure last night that was brief. Resolved very quickly with 1 mg of Ativan. No reports of any bowel movements since last night, no further GI blood loss noted clinically. Patient herself denies any new complaints. Objective Vital Signs Date Time Temp Pulse Resp B/P (MAP) Pulse Ox O2 Delivery O2 Flow Rate FiO2 08/05/17 17:29 50 13 123/76 (92) 100 08/05/17 17:29 50 08/05/17 17:00 58 08/05/17 16:29 98.9 120/71 (87) 08/05/17 15:00 52 08/05/17 14:00 50 08/05/17 13:45 54 12 125/77 (93) 97 08/05/17 12:00 60 08/05/17 12:00 99.2 60 11 117/58 (77) 97 08/05/17 11:00 62 11 112/75 (87) 95 08/05/17 11:00 62 08/05/17 10:00 68 08/05/17 10:00 68 15 119/81 (94) 98 08/05/17 09:00 74 08/05/17 09:00 74 14 117/79 (92) 99 08/05/17 08:00 74 08/05/17 08:00 99.0 74 15 109/73 (85) 92 08/05/17 07:00 71 08/05/17 07:00 08/05/17 07:00 72 13 98/68 (78) 94 08/05/17 06:10 100 Nasal Cannula 2.00 08/05/17 06:00 72 12 105/68 (80) 100 08/05/17 06:00 72 08/05/17 05:21 74 08/05/17 05:00 72 13 104/70 (81) 100 08/05/17 05:00 72 08/05/17 04:41 74 24 136/61 (86) 94 08/05/17 04:40 86 Nasal Cannula 2.00 08/05/17 04:37 128 34 118/45 (69) 86 08/05/17 04:15 95 Room Air 08/05/17 04:14 99.1 80 18 119/75 (90) 96 08/05/17 01:13 16 10/11/17 01:13 16 08/05/17 00:32 98.4 73 20 123/85 98 08/05/17 00:30 97.4 89 20 119/78 (92) 97 08/05/17 00:02 98.4 65 20 139/86 98 08/05/17 00:00 97.4 73 20 123/74 (90) 98 08/05/17 00:00 98 Nasal Cannula 2.00 08/04/17 20:40 97.8 84 20 116/78 98 I/O 08/04/17 08/04/17 08/04/17 08/05/17 08/05/17 08/05/17 06:59 14:59 22:59 06:59 14:59 22:59 Intake Total 335 ml 585 ml 1342 ml 200 ml Output Total 600 ml Balance 335 ml 585 ml 742 ml 200 ml Intake Oral 448 ml IV Total 250 ml 585 ml 349 ml Packed Cells 75 ml 500 ml Blood Product IV Normal Saline Flush 10 ml 45 ml Other 200 ml Output Urine Total 600 ml # Voids 3 # Bowel Movements 5 Result Diagram: 08/05/1739908/05/17399 Objective Remarks Lying in bed sleeping, easily awoken Abdomen is soft, nontender, nondistended No facial droop and slurred speech, EOMI motions are intact, tongue is midline A/P Assessment and Plan Grand mal seizure suspected - EEG ordered, neurology consulted. CT head neg. Severe gastritis - noted on EGD and w/ multiple diverticuli on colonoscopy. (1) Anemia I doubt blood transfusion reaction, there is no fever, hives or shortness of breath, patient symptoms may be due to hypo-tension which was pre-existing as well as her severe anemia requiring transfusion Follow-up with hematology work up for anemia in progress although likely due to gi acute blood loss (dark stools in bathroom), protonix, octreotide (2) Alcoholism ICD Code: F10.20 - Alcohol dependence, uncomplicated Status: Acute Plan: ciwa, thiamine,multivitamin (3) Abdominal pain ICD Code: R10.9 - Unspecified abdominal pain Plan: iv dilaudid for pain, ct, IVF, bowel rest may be due to gi bleed/gastritis/duodenitis/pancreatitis severe hepatomegaly on ct (4) Tobacco dependency ICD Code: F17.200 - Nicotine dependence, unspecified, uncomplicated Plan: Abstinence advised nicotine patch as needed (5) LFT elevation ICD Code: R79.89 - Other specified abnormal findings of blood chemistry Plan: likely to etoh, hep panel pending follow trend (6) Elevated lipase ICD Code: R74.8 - Abnormal levels of other serum enzymes Plan: may be due to pancreatitis v gi bleed follow trend (7) Thrombocytopenia ICD Code: D69.6 - Thrombocytopenia, unspecified Plan: Likely due to splenic sequestration from alcoholism No need to transfuse platelets at this time (8) Foot pain ICD Code: M79.673 - Pain in unspecified foot Plan: Etiology unclear, may be inflammatory versus neuropathic Continue follow-up Patient using ice for good relief Juan Daniel Valdes MD Aug 05, 2017 18:01
[2017-08-05] MEDS ORDERED: GABAPENTIN 300 MG CAP PO PRN (18:15)
[2017-08-05] MEDS ORDERED: POTASSIUM CHLOR 20 MEQ PREMIX 100 ML IV ONE (18:30)
--- NOTE | 2017-08-05 21:29 | MG ---
cc: LION SANCHEZ M.D. Lab No: Date: 08/05/17 Age: 47 Sex: F Race: REQUESTING PHYSICIAN GABRIELE Kemp HISTORY An EEG was obtained on this 47-year-old patient, awake and drowsy with a history of seizures. DESCRIPTION The EEG shows beta rhythms diffusely. Intermittently, there is some low amplitude alpha activity in the 10-12 per second range. There is relatively rare theta rhythms bilaterally. The background is reactive and the theta activity appears to be related to drowsiness. Later on there is more obvious asleep. There are some sleepy spindles symmetrically. The patient awakens. Then the photic stimulation disclosed a bilateral driving response. INTERPRETATION Normal awake and light asleep EEG. Lion Sanchez MD OFC/EO /6:49 PM /9:18 PM
[2017-08-05 21:45] LABS: BLOOD, URINE NEG (NEG); GLUCOSE,URINE NEG (NEG); KETONE, URINE NEG (NEG); NITRITE,URINE NEG (NEG)
[2017-08-05 21:50] LABS: COMMENT (UR) CULT NOT INDICATED; CULTURE IF INDICATED CULT NOT INDICATED; SQUAMOUS EPITHELIAL CELL URINE 0-5 /hpf (0-5); URINE COLOR YELLOW (YELLW/STRAW); WBC, URINE 0-2 /hpf (0-5)
--- NOTE | 2017-08-05 22:49 | MB ---
cc: DESTINEE DUKE DATE OF CONSULTATION: 08/05/2017 REASON FOR CONSULTATION: HISTORY OF PRESENT ILLNESS: The patient is a 47-year-old right-handed woman who has been drinking a lot of vodka and about 2 weeks ago started to have edema of her feet. She had decreased p.o. was brought in by her boyfriend, found to be alcoholic, intoxication, affecting her hematological status, and came into the hospital, had two grand mal seizures on the floor, brought into the ER. No more seizures since. EEG today preliminary negative. REVIEW OF SYSTEMS No hypertension, diabetes, hypercholesterolemia, VA, CABG, cardiac arrhythmia, renal, hepatic, pulmonary disease, thyroid disease, lupus, ulcer, cancer or stroke. SOCIAL HISTORY She is a smoker, very heavy vodka drinker. She says she is not going to drink anymore. She lives with her fiance. FAMILY HISTORY: Negative for cancer, seizure, positive stroke in her father. PAST MEDICAL HISTORY: She tells me she did have a seizure, several small ones as a toddler, but was never on meds that she can remember. As far as she knows she has never had a seizure as an adult. ALLERGIES: NO KNOWN DRUG ALLERGIES. MEDICATIONS: No medications. PHYSICAL EXAMINATION: On exam, she is afebrile 50, 13, 123/76. Neck: There were no carotid bruits. Heart: Regular rhythm. I did not detect a murmur. Pupils were equal, visual rockwell full. Extraocular movements intact without nystagmus. Neurologic: Face symmetric with normal sensation. Tongue was midline, no drift. Normal strength in upper and lower extremities bilaterally. Toes are downgoing bilaterally. There is no ankle clonus. DTRs are trace throughout. Pinprick is intact throughout. There is no asterixis. Speech is fluent. She is not aphasic. She is alert and oriented x 3. LABORATORY DATA White count is normal. Hematocrit is 24, it had been 17. MCV 119. Platelet count 95,000. Sed rate 62. Hepatitis screen negative. Urine drug screen negative. Alcohol level is 355. UA negative. Sodium 133, creatinine normal. Calcium low at 7.5, corrected. AST 326, ALT 55. Ammonia level 16, lipase is 529. B12 normal. Folate normal. TSH normal. Total protein 6.2, albumin 2.7. She had MRI of her brain which was normal with and without contrast. MRI reviewed the films, diffusion images negative. No abnormalities noted. Hippocampi looked normal. MEDICATIONS Current meds: 1. Librium 50 q.6 h. 2. Keppra 500 b.i.d. IMPRESSION Alcohol withdrawal seizure. She is not going through any current clinical withdrawal right now. No tremors. I told her in the [facility] ER she cannot drive for six months. I also told her fiance not to swim alone or take a bath alone. We will check the EEG results. She is having some achiness in her legs. We can try her on some gabapentin for that. Overall I think she looks well neurologically. She could be discharged neuro-arteaga but not to drive for 6 months. MD BARBI Dillon/ELOISA /5:57 PM /10:22 PM
[2017-08-06] VITALS (29 sets, daily range): BP systolic 111–152; BP diastolic 68–90; PULSE 48–78; RESP 15–50; TEMP 98–99.2; O2SAT 98
[2017-08-06] MEDS: chlordiazePOXIDE 25 MG CAP PO SCH ×3 (02:45→16:51)
[2017-08-06 04:34] LABS: HEMATOCRIT 24.2 % (35.0-46.0); MEAN CELL VOLUME 105.6 FL (80.0-100.0); MEAN CORPUSCULAR HEMOGLOBIN 35.2 PG (27.0-34.0); MEAN CORPUSCULAR HGB CONC 33.3 % (32.0-36.0); PLATELET COUNT 103 TH/MM3 (150-450); RED CELL DISTRIBUTION WIDTH 27.6 % (11.6-17.2); WHITE BLOOD COUNT 4.8 TH/MM3 (4.0-11.0)
[2017-08-06 04:38] LABS: HEMO FLAGS AUTO DIFF
[2017-08-06 04:51] LABS: BANDS 1 % (0-6); CORRECTED NUCLEATED RBC 4 /100 WBC (0-0); MYELOCYTES 1 % (0-0); NEUTROPHIL # MANUAL DIFF 3.8 TH/MM3 (1.8-7.7); POLYS (SEG NEUTROPHILS) 77 % (16-70); WBC DIFF SAMPLE 100
[2017-08-06 04:52] LABS: PLATELET ESTIMATE SMEAR LOW (NORMAL); PLATELET MORPHOLOGY NORMAL (NORMAL); SCAN/DIFF FINAL DIFF MANUAL
[2017-08-06] MEDS: OCTREOTIDE INJ 500 MCG in SODIUM CHLORID 0.9% 500 ML INJ 499.5 ML IV SCH (04:55)
[2017-08-06 05:01] LABS: BICARBONATE 24.8 MEQ/L (21.0-32.0); CALCIUM-PROTEIN CORRECTED 7.9 MG/DL (8.5-10.1); POTASSIUM 3.3 MEQ/L (3.5-5.1); TOTAL BILIRUBIN ADULT 4.3 MG/DL (0.2-1.0)
[2017-08-06] MEDS ORDERED: POTASSIUM PHOSPHATE/SODIUM PHOSPHATE 250 MG TAB PO ONE (06:00)
[2017-08-06] MEDS ORDERED: CALCIUM GLUCONATE 10% 1 GM/10 ML VIAL IV PUSH ONE (06:30)
[2017-08-06] MEDS ORDERED: POTASSIUM PHOSPHATE INJ 30 MMOL in SODIUM CHLOR 0.9% 250 ML INJ 250 ML IV ONE (07:00)
[2017-08-06] MEDS: INSULIN ASPART SUPPLEMENTAL SCALE SQ SCH ×2 (08:00→12:00)
[2017-08-06] MEDS: SODIUM CHLORIDE 0.9% FLUSH 10 ML FLUSH IV FLUSH SCH (08:20)
[2017-08-06] MEDS: levETIRAcetam 500 MG TAB PO SCH (09:17)
[2017-08-06] MEDS: PANTOPRAZOLE INJ 80 MG in SODIUM CHLORIDE 0.9% INJ 100 ML IV SCH (09:45)
--- NOTE | 2017-08-06 12:41 | ECHRPT ---
Indication: cva/tia CONCLUSIONS The left ventricular systolic function is normal with an estimated ejection fraction in the range of 55-60%. Normal left ventricular size. Wall thickness is normal. Mild mitral valve regurgitation. There is mild tricuspid valve regurgitation. The estimated pulmonary arterial pressure is 39.8 mmHg. BP: / HR: Rhythm: MEASUREMENTS (Male / Female) Normal Values Technical Quality:Good 2D ECHO LV Diastolic Diameter PLAX 4.8 cm 4.2 - 5.9 / 3.9 - 5.3 cm LV Systolic Diameter PLAX 3.6 cm IVS Diastolic Thickness 0.8 cm 0.6 - 1.0 / 0.6 - 0.9 cm LVPW Diastolic Thickness 1.0 cm 0.6 - 1.0 / 0.6 - 0.9 cm LV Relative Wall Thickness 0.4 RV Internal Dim ED PLAX 3.2 cm M-MODE Aortic Root Diameter MM 3.3 cm LA Systolic Diameter MM 3.5 cm LA Ao Ratio MM 1.1 AV Cusp Separation MM 2.3 cm DOPPLER Mitral E Point Velocity 70.1 cm/s Mitral A Point Velocity 49.9 cm/s Mitral E to A Ratio 1.4 LV E' Lateral Velocity 14.2 cm/s Mitral E to LV E' Lateral Ratio 4.9 LV E' Septal Velocity 12.5 cm/s Mitral E to LV E' Septal Ratio 5.6 TR Peak Velocity 273.0 cm/s TR Peak Gradient 29.8 mmHg Right Atrial Pressure 10.0 mmHg Pulmonary Artery Systolic Pressu 39.8 mmHg Right Ventricular Systolic Press 39.8 mmHg FINDINGS LEFT VENTRICLE The left ventricular systolic function is normal with an estimated ejection fraction in the range of 55-60%. Normal left ventricular size. Wall thickness is normal. RIGHT VENTRICLE Normal right ventricular size and systolic function. LEFT ATRIUM The left atrial size is normal. RIGHT ATRIUM The right atrial size is normal. ATRIAL SEPTUM Normal atrial septal thickness without atrial level shunting by limited color doppler interrogation. AORTA The aortic root and proximal ascending aorta are normal in size on limited imaging. MITRAL VALVE Structurally normal mitral valve. Mild mitral valve regurgitation. AORTIC VALVE Trileaflet aortic valve. No aortic valve stenosis or regurgitation. TRICUSPID VALVE Structurally normal tricuspid valve. There is mild tricuspid valve regurgitation. The estimated pulmonary arterial pressure is 39.8 mmHg. PULMONARY VALVE No pulmonary valve regurgitation or stenosis. VESSELS The inferior vena cava is normal in size. PERICARDIUM No pericardial effusion. Lukas Benson MD, FACC (Electronically Signed) Final Date:06 August 2017 12:40
[2017-08-06] MEDS ORDERED: LEVE500 PO (15:31)
[2017-08-06] MEDS ORDERED: OMEP40CA2 PO (15:32)
[2017-08-06] MEDS ORDERED: CHLO10CA5 PO (15:34)
--- NOTE | 2017-08-06 15:37 | HHI.DCPOC ---
Discharge Care Plan Diagnosis: (1) Gastritis (2) Abdominal pain (3) Alcoholism (4) LFT elevation Goals to Promote Your Health * To prevent worsening of your condition and complications * To maintain your health at the optimal level Directions to Meet Your Goals Take your medications as prescribed Follow your dietary instruction Follow activity as directed Keep your appointments as scheduled Take your immunizations and boosters as scheduled If your symptoms worsen call your PCP, if no PCP go to Urgent Care Center or Emergency Room Smoking is Dangerous to Your Health. Avoid second hand smoke Call the 24-hour hour crisis hotline for domestic abuse at Juan Daniel Valdes MD Aug 06, 2017 15:37
--- NOTE | 2017-08-06 15:38 | HHI.DS ---
Discharge Summary Admission Date Aug 03, 2017 at 21:45 Discharge Date: Aug 06, 2017 Admitting Diagnosis Anemia; Pancreatitis; HypoK; Alcoholism; Steatohepatosis (1) Anemia ICD Code: D64.9 - Anemia, unspecified Status: Acute (2) Abdominal pain ICD Code: R10.9 - Unspecified abdominal pain (3) Tobacco dependency ICD Code: F17.200 - Nicotine dependence, unspecified, uncomplicated (4) LFT elevation ICD Code: R79.89 - Other specified abnormal findings of blood chemistry (5) Elevated lipase ICD Code: R74.8 - Abnormal levels of other serum enzymes (6) Thrombocytopenia ICD Code: D69.6 - Thrombocytopenia, unspecified (7) Foot pain ICD Code: M79.673 - Pain in unspecified foot (8) Gastritis ICD Code: K29.70 - Gastritis, unspecified, without bleeding Diagnosis: Principal Procedures EGD and colonoscopy Brief History - From Admission This patient is a pleasant 47 show female with minimal past history but drinks quite a bit of liquor daily for at least a decade. She has been with increased abdominal pain for the last 10 days and has associated lower extremity swelling improved with ice. She also has complained of abdominal fullness and distention. She tried to take some ibuprofen and Tums without relief. She has not had any fevers or chills but has been very fatigued. She notes no intestinal bleeding either by emesis or by bowel in the last 10 days, however she did have episode of dark tarry stools while in the hospital. Her hemoglobin has been quite low and actually was 5.8 on arrival. She was supposed to be getting a blood transfusion but felt lightheaded within 10 minutes of the blood transfusion beginning. There is no fever or chills but there was a concern for a transfusion reaction. Patient is agreeable to try again and this is most appropriate given the patient's severe anemia. She is admitted to the hospital for further evaluation of abdominal pain with anemia in a patient with known alcohol dependency. She has also an elevated lipase which may represent some pancreatitis. She has never had this problem before and has not been in the hospital for this. CBC/BMP: 08/06/17 0415 08/06/17 0415 Significant Findings Laboratory Tests Test 08/03/17 18:45 08/03/17 19:25 08/04/17 06:05 08/04/17 13:40 Red Blood Count 1.50 MIL/MM3 (4.00-5.30) 1.41 MIL/MM3 (4.00-5.30) Hemoglobin 5.8 GM/DL (11.6-15.3) 5.4 GM/DL (11.6-15.3) Hematocrit 17.9 % (35.0-46.0) 16.4 % (35.0-46.0) Mean Corpuscular Volume 119.1 FL (80.0-100.0) 116.3 FL (80.0-100.0) Mean Corpuscular Hemoglobin 38.6 PG (27.0-34.0) 38.5 PG (27.0-34.0) Red Cell Distribution Width 24.1 % (11.6-17.2) 26.9 % (11.6-17.2) Platelet Count 106 TH/MM3 (150-450) 87 TH/MM3 (150-450) Nucleated Red Blood Cells 7 /100 WBC (0-0) 5 /100 WBC (0-0) Platelet Estimate LOW (NORMAL) LOW (NORMAL) Target Cells 1+ (NORMAL) 2+ (NORMAL) Albumin 2.7 GM/DL (3.4-5.0) Calcium Level 7.9 MG/DL (8.5-10.1) 7.3 MG/DL (8.5-10.1) Alkaline Phosphatase 331 U/L (45-117) Aspartate Amino Transf (AST/SGOT) 557 U/L (15-37) Alanine Aminotransferase (ALT/SGPT) 71 U/L (10-53) Total Bilirubin 4.7 MG/DL (0.2-1.0) Potassium Level 3.2 MEQ/L (3.5-5.1) 3.2 MEQ/L (3.5-5.1) Lipase 622 U/L (73-393) Ethyl Alcohol Level 355 MG/DL (0-5) Urine Color DEL (YELLW/STRAW) Urine Glucose (UA) 100 mg/dL (NEG) Urine Occult Blood TRACE (NEG) Urine Bilirubin MOD (NEG) Urine Squamous Epithelial Cells 6-8 /hpf (0-5) Total Protein 6.2 GM/DL (6.4-8.2) Protein Corrected Calcium 7.8 MG/DL (8.5-10.1) Test 08/05/17 04:00 08/05/17 09:30 08/05/17 21:20 08/06/17 04:15 Red Blood Count 2.35 MIL/MM3 (4.00-5.30) 2.30 MIL/MM3 (4.00-5.30) Hemoglobin 8.4 GM/DL (11.6-15.3) 8.1 GM/DL (11.6-15.3) Hematocrit 24.9 % (35.0-46.0) 24.2 % (35.0-46.0) Mean Corpuscular Volume 106.1 FL (80.0-100.0) 105.6 FL (80.0-100.0) Mean Corpuscular Hemoglobin 36.0 PG (27.0-34.0) 35.2 PG (27.0-34.0) Red Cell Distribution Width 27.7 % (11.6-17.2) 27.6 % (11.6-17.2) Platelet Count 95 TH/MM3 (150-450) 103 TH/MM3 (150-450) Neutrophils % (Manual) 71 % (16-70) 77 % (16-70) Monocytes % 9 % (0-8) Nucleated Red Blood Cells 3 /100 WBC (0-0) 4 /100 WBC (0-0) Platelet Estimate LOW (NORMAL) LOW (NORMAL) Random Glucose 199 MG/DL (74-106) Total Protein 6.2 GM/DL (6.4-8.2) 5.8 GM/DL (6.4-8.2) Albumin 2.7 GM/DL (3.4-5.0) 2.4 GM/DL (3.4-5.0) Calcium Level 7.0 MG/DL (8.5-10.1) 7.2 MG/DL (8.5-10.1) Alkaline Phosphatase 271 U/L (45-117) 252 U/L (45-117) Aspartate Amino Transf (AST/SGOT) 326 U/L (15-37) 279 U/L (15-37) Alanine Aminotransferase (ALT/SGPT) 55 U/L (10-53) 54 U/L (10-53) Total Bilirubin 4.2 MG/DL (0.2-1.0) 4.3 MG/DL (0.2-1.0) Sodium Level 133 MEQ/L (136-145) Potassium Level 3.0 MEQ/L (3.5-5.1) 3.3 MEQ/L (3.5-5.1) Chloride Level 96 MEQ/L (98-107) Protein Corrected Calcium 7.5 MG/DL (8.5-10.1) 7.9 MG/DL (8.5-10.1) Lipase 529 U/L (73-393) Erythrocyte Sedimentation Rate 62 mm/hr (0-20) Free Thyroxine 0.65 NG/DL (0.76-1.46) Myelocytes 1 % (0-0) Creatinine 0.44 MG/DL (0.50-1.00) Phosphorus Level 1.8 MG/DL (2.5-4.9) Imaging Last Impressions Brain MRI 08/05/17 0858 Signed Impressions: Service Date/Time: Saturday, August 05, 2017 13:10 - CONCLUSION: Negative MRI of the brain without and with contrast. Seizure focus not identified. Melecio Rodgers MD FACR Chest X-Ray 08/04/17 0000 Signed Impressions: Service Date/Time: Friday, August 04, 2017 00:32 - CONCLUSION: No acute disease Celestine Moreno MD Abdomen/Pelvis CT 08/03/17 1920 Signed Impressions: Service Date/Time: Thursday, August 03, 2017 20:34 - CONCLUSION: 1. Hepatomegaly with severe infiltration. No masses are identified Scottie Childress MD PE at Discharge Nondistended abdomen, soft, nontender Ambulating well down hallway with no acute distress Hospital Course Patient was admitted to the ICU. Gastroenterology performed EGD and colonoscopy , EGD showing multiple ulcers whereas colonoscopy was unremarkable except for diverticular dx. Patient did undergo a grand mall seizure during one night which was deduced to be from alcohol withdrawal by neurology. Patient was started on seizure medication. Meanwhile the patient's bowel movements became normal with no further blood and she was tolerating by mouth intake well. Her blood counts remained steady. She was counseled on avoiding NSAIDs and further alcohol and also instructed to avoid driving and operating any heavy machinery for at least the next 6 months. Patient has been maximal benefit from hospitalization and is clinically stable for discharge. Pt Condition on Discharge: Stable Discharge Disposition: Discharge Home Discharge Time: > 30 minutes Discharge Instructions Activities to Avoid: Driving Follow up Referrals: Gastroenterology with Valentina Boland MD PCP Follow-up - 1 Week New Medications: Chlordiazepoxide HCl (Chlordiazepoxide HCl) 10 Mg Capsule 1 CAP PO BID for withdrawal, #8 CAP Omeprazole (Omeprazole) 40 Mg Cap 40 MG PO DAILY for gastritis, #60 CAP 0 Refills Levetiracetam (Keppra) 500 Mg Tab 500 MG PO Q12HR for seizures, #60 TAB Juan Daniel Valdes MD Aug 06, 2017 15:38
--- NOTE | 2017-08-06 17:04 | HHI.GIFU ---
GI Follow-up Note Consult Follow-up Subjective:late entry. Patient laying in bed comfortably, no new complaints except .No nausea, vomiting, abdominal pain. S/p egd/colon yesterday-pud , most likely source of anemia .Seizure , most likely secondary to withdrawal Objective: PHYSICAL EXAMINATION: Vitals signs stable No fever HEENT: Pupils round and reactive to light; normocephalic; atraumatic; jaundice. Throat is clear. NECK: Neck is supple, no JVD, no lymphadenopathy. CHEST: Chest is clear to auscultation and percussion. CARDIAC: Regular rate and rhythm with no murmur gallop or rubs. ABDOMEN: Soft, nondistended, nontender; no hepatosplenomegaly; bowel sounds are present in all four quadrants. EXTREMITIES: No clubbing, cyanosis, edema. SKIN: Normal; no rash; jaundice. THROAT CUTTER: No focal deficits; alert and oriented times three. Available Data (labs, X- Rays, Procedues) : Laboratory Tests Test 08/05/17 04:00 08/05/17 09:30 08/05/17 21:20 08/06/17 04:15 White Blood Count 5.6 TH/MM3 4.8 TH/MM3 Red Blood Count 2.35 MIL/MM3 2.30 MIL/MM3 Hemoglobin 8.4 GM/DL 8.1 GM/DL Hematocrit 24.9 % 24.2 % Mean Corpuscular Volume 106.1 FL 105.6 FL Mean Corpuscular Hemoglobin 36.0 PG 35.2 PG Mean Corpuscular Hemoglobin Concent 33.9 % 33.3 % Red Cell Distribution Width 27.7 % 27.6 % Platelet Count 95 TH/MM3 103 TH/MM3 Mean Platelet Volume 8.2 FL 8.0 FL CBC Comment AUTO DIFF AUTO DIFF Differential Total Cells Counted 100 100 Neutrophils % (Manual) 71 % 77 % Lymphocytes % 19 % 20 % Monocytes % 9 % 1 % Basophils % 1 % Neutrophils # (Manual) 4.0 TH/MM3 3.8 TH/MM3 Nucleated Red Blood Cells 3 /100 WBC 4 /100 WBC Differential Comment FINAL DIFF MANUAL FINAL DIFF MANUAL Platelet Estimate LOW LOW Platelet Morphology Comment NORMAL NORMAL Blood Urea Nitrogen 13 MG/DL 7 MG/DL Creatinine 0.58 MG/DL 0.44 MG/DL Random Glucose 199 MG/DL 106 MG/DL Total Protein 6.2 GM/DL 5.8 GM/DL Albumin 2.7 GM/DL 2.4 GM/DL Calcium Level 7.0 MG/DL 7.2 MG/DL Magnesium Level 2.0 MG/DL 2.0 MG/DL Alkaline Phosphatase 271 U/L 252 U/L Aspartate Amino Transf (AST/SGOT) 326 U/L 279 U/L Alanine Aminotransferase (ALT/SGPT) 55 U/L 54 U/L Total Bilirubin 4.2 MG/DL 4.3 MG/DL Sodium Level 133 MEQ/L 138 MEQ/L Potassium Level 3.0 MEQ/L 3.3 MEQ/L Chloride Level 96 MEQ/L 105 MEQ/L Carbon Dioxide Level 26.9 MEQ/L 24.8 MEQ/L Anion Gap 10 MEQ/L 8 MEQ/L Estimat Glomerular Filtration Rate 112 ML/MIN 154 ML/MIN Protein Corrected Calcium 7.5 MG/DL 7.9 MG/DL Lipase 529 U/L Erythrocyte Sedimentation Rate 62 mm/hr Ammonia 16 MCMOL/L Vitamin B12 Level 898 PG/ML Folate 3.3 NG/ML Free Thyroxine 0.65 NG/DL Thyroid Stimulating Hormone 3rd Gen 1.470 uIU/ML Human Chorionic Gonadotropin, Quant LESS THAN 1 MIU/ML Rapid Plasma Reagin NON-REACTIVE Urine Color YELLOW Urine Turbidity CLEAR Urine pH 7.0 Urine Specific [place] 1.010 Urine Protein NEG mg/dL Urine Glucose (UA) NEG mg/dL Urine Ketones NEG mg/dL Urine Occult Blood NEG Urine Nitrite NEG Urine Bilirubin NEG Urine Leukocyte Esterase NEG Urine WBC 0-2 /hpf Urine Squamous Epithelial Cells 0-5 /hpf Microscopic Urinalysis Comment CULT NOT INDICATED Band Neutrophils % 1 % Myelocytes 1 % Phosphorus Level 1.8 MG/DL ASSESSMENT/PLAN: gi bleeding secondary pud severe anemia secondary pud and etoh use etoh liver disease alcoholism seizure most likely secondary withdrawal Recommendations avoid etoh gi will sign of ppi avoid nsaids if dc fu gi in 2 weeks ok to dc from gi point It was a pleasure seeing Jaja Ricardo. Thank you for this consult. Entered by: Valentina Crocker MD Aug 06, 2017 17:04
[2017-08-06] MEDS ORDERED: PANTOPRAZOLE SOD 40 MG DELAYED RELEASE TAB PO SCH (21:00)
[2017-08-07 11:51] LABS: ANA SCREEN NEG (NEG)
[2017-08-08 11:52] LABS: VITAMIN B6 LESS THAN 2.0 ng/mL (2.1-21.7)
== END 2017-08-06 18:30 | disposition home or self-care (01) | DRG 377 ==
LOC: PHED 17:35 → PHEDA 21:38 → OBSVTOIN 21:45 → PH3B 08-04 05:16 → PHICU 08-05 04:20
PROVIDERS: ADMIT Hospitalist; ATTEND Hospitalist
PROC: 30233N1 Transfusion of Nonautologous Red Blood Cells into Peripheral Vein, Percutaneous Approach (ICD-10-PCS; principal; 2017-08-03)
PROC: 0DB68ZX Excision of Stomach, Via Natural or Artificial Opening Endoscopic, Diagnostic (ICD-10-PCS; 2017-08-05)
PROC: 0DJD8ZZ Inspection of Lower Intestinal Tract, Via Natural or Artificial Opening Endoscopic (ICD-10-PCS; 2017-08-05 15:55)
DX: K29.01 Acute gastritis with bleeding (principal); K85.20 Alcohol induced acute pancreatitis without necrosis or infection; K76.6 Portal hypertension; D69.59 Other secondary thrombocytopenia; G40.409 Other generalized epilepsy and epileptic syndromes, not intractable, without status epilepticus; F10.239 Alcohol dependence with withdrawal, unspecified; D64.89 Other specified anemias; F17.210 Nicotine dependence, cigarettes, uncomplicated; M79.673 Pain in unspecified foot; Z80.0 Family history of malignant neoplasm of digestive organs; K70.9 Alcoholic liver disease, unspecified; K57.30 Diverticulosis of large intestine without perforation or abscess without bleeding; K29.70 Gastritis, unspecified, without bleeding; E87.6 Hypokalemia
CPT/HCPCS: 36430; 70553; 71020; 74177; 80048; 80053; 80074; 80307; 81001; 82140; 82607; 82746; 82948; 83690; 83735; 84100; 84155; 84207; 84425; 84439; 84443; 84702; 84703; 85007; 85027; 85652; 86038; 86078; 86592; 86850; 86880; 86900; 86901; 86920; 88305; 93306; 95819; A9579; C9113; J0610; J1170; J1815; J2060; J2250; J2354; J3480; J7040; J7050; P9016; Q9967

== ENCOUNTER 2017-08-08 12:14 | Emergency (ER) | payer MEDICAID ==
[~2017-08-08] VITALS: Ht 167.6 cm; Wt 53.1 kg
[~2017-08-08 12:14] MED LIST changes: +CHLO10CA5 PO; -HYDR-3533 PO; +LEVE500 PO; +OMEP40CA2 PO
[2017-08-08 12:29] VITALS: BP 122/70; PULSE 72; RESP 18; TEMP 98.4; O2SAT 99
--- NOTE | 2017-08-08 12:56 | PD ---
HPI Chief Complaint: GI Complaint Time Seen by Provider: 12:42 Travel History International Travel<30 days: No Contact w/Intl Traveler<30days: No Traveled to known affect area: No History of Present Illness HPI This is a 47-year-old female who has a history of alcohol dependence who presents to the emergency department with dark stools that have been going on for 2 days, constant, severe, associated with some lightheadedness and dizziness. Patient is just discharged 2 days ago from the hospital having been admitted for GI bleeding and had a colonoscopy done by Dr. Hyde to that demonstrated peptic ulcer disease. She says the blood in her stool had subsided upon discharge from the hospital. She received 2 blood transfusions while she was in the hospital. PFS Past Medical History Blood Disorders: Yes (ANEMIA) Cancer: No Cardiovascular Problems: No Diabetes: No Endocrine: No Glaucoma: No Genitourinary: No Hepatitis: No Hiatal Hernia: No Hypertension: No Immune Disorder: No Musculoskeletal: No Neurologic: Yes Psychiatric: No Reproductive: No Respiratory: No Seizures: Yes ( A CHILD) Thyroid Disease: No ?: Not LMP: May : 2 Para: 2 Past Surgical History Abdominal Surgery: Yes (APPENDECTOMY) Appendectomy: Yes (2007) Cardiac Surgery: No Ear Surgery: No Endocrine Surgery: No Eye Surgery: No Genitourinary Surgery: No Gynecologic Surgery: No Oral Surgery: Yes (EGD) Pacemaker: No Thoracic Surgery: No Other Surgery: Yes Social History Alcohol Use: Yes (DAILY) Tobacco Use: Yes Substance Use: No Allergies-Medications (Allergen,Severity, Reaction): Coded Allergies: No Known Allergies (Verified , 08/03/17) Reported Meds & Prescriptions Reported Meds & Active Scripts Active Chlordiazepoxide HCl 10 Mg Capsule 1 Cap PO BID Omeprazole 40 Mg Cap 40 Mg PO DAILY Keppra (Levetiracetam) 500 Mg Tab 500 Mg PO Q12HR Review of Systems Except as stated in HPI: all other systems reviewed are Neg Physical Exam Narrative GENERAL:Well appearing, no acute distress SKIN: Jaundice HEAD: Atraumatic. Normocephalic. EYES: Pupils equal and round. No injection or drainage. Scleral icterus ENT: Moist mucous membranes NECK: Trachea midline. CARDIOVASCULAR: Regular rate and rhythm. No murmur appreciated. RESPIRATORY: Clear to auscultation. Breath sounds equal bilaterally. GASTROINTESTINAL: Abdomen soft, distention, hepatomegaly. MUSCULOSKELETAL: No obvious deformities. NEUROLOGICAL: Awake and alert. No obvious cranial nerve deficits. Moving all extremities. PSYCHIATRIC: Appropriate mood and affect; insight and judgment normal. Data Data Last Documented VS Vital Signs Date Time Temp Pulse Resp B/P (MAP) Pulse Ox O2 Delivery O2 Flow Rate FiO2 08/08/17 12:29 98.4 72 18 122/70 (87) 99 Orders Orders Complete Blood Count With Diff (08/08/17 12:54) Basic Metabolic Panel (Bmp) (08/08/17 12:54) Labs Laboratory Tests Test 08/08/17 13:17 White Blood Count 5.9 TH/MM3 Red Blood Count 2.99 MIL/MM3 Hemoglobin 10.8 GM/DL Hematocrit 31.8 % Mean Corpuscular Volume 106.1 FL Mean Corpuscular Hemoglobin 36.1 PG Mean Corpuscular Hemoglobin Concent 34.0 % Red Cell Distribution Width 25.9 % Platelet Count 228 TH/MM3 Mean Platelet Volume 8.1 FL CBC Comment AUTO DIFF Blood Urea Nitrogen 4 MG/DL Creatinine 0.53 MG/DL Random Glucose 100 MG/DL Calcium Level 8.8 MG/DL Sodium Level 136 MEQ/L Potassium Level 3.2 MEQ/L Chloride Level 101 MEQ/L Carbon Dioxide Level 25.3 MEQ/L Anion Gap 10 MEQ/L Estimat Glomerular Filtration Rate 124 ML/MIN MDM Medical Decision Making Medical Screen Exam Complete: Yes Emergency Medical Condition: Yes Interpretation(s) afebrile, no tachycardia,, normotensive anemia, improved from discharge mild hypokalemia Differential Diagnosis Peptic ulcer disease, anemia, electrolyte abnormality, dehydration Narrative Course This is a 47 year-old female who was just hospitalized for peptic ulcer disease in the setting of alcoholic liver disease who presents to the emergency department with some black stools and generalized fatigue. Labs demonstrate an improved hemoglobin from her discharge and her Hemoccult was negative. I suspect her weakness is in the setting of being on a clear liquid diet for 7 days. I advised her she can slowly advance her diet. I think she is safe for outpatient follow-up. She was given resources for the [facility]. Diagnosis Primary Impression: PUD (peptic ulcer disease) Patient Instructions: General Instructions Additional Instructions: If you develop severe or worsening abdominal pain, fever>100.4, persistent vomiting or inability to eat or drink return to the emergency department immediately. Follow up with your primary care physician in 1-2 days for a check-up. Med/Other Pt SpecificInfo: No Change to Meds Disposition: 01 DISCHARGE HOME Condition: Stable Elina Martinez MD Aug 08, 2017 12:56
[2017-08-08 13:22] LABS: HEMATOCRIT 31.8 % (35.0-46.0); MEAN CELL VOLUME 106.1 FL (80.0-100.0); MEAN CORPUSCULAR HEMOGLOBIN 36.1 PG (27.0-34.0); PLATELET COUNT 228 TH/MM3 (150-450); RED BLOOD COUNT 2.99 MIL/MM3 (4.00-5.30); RED CELL DISTRIBUTION WIDTH 25.9 % (11.6-17.2); WHITE BLOOD COUNT 5.9 TH/MM3 (4.0-11.0)
[2017-08-08 13:30] LABS: HEMO FLAGS AUTO DIFF; POTASSIUM 3.2 MEQ/L (3.5-5.1)
[2017-08-08 13:40] LABS: BICARBONATE 25.3 MEQ/L (21.0-32.0)
[2017-08-08 13:57] LABS: BANDS 6 % (0-6); EOSINOPHILS 1 % (0-4); POLYS (SEG NEUTROPHILS) 79 % (16-70); WBC DIFF SAMPLE 100
[2017-08-08 13:59] LABS: PLATELET ESTIMATE SMEAR NORMAL (NORMAL); PLATELET MORPHOLOGY NORMAL (NORMAL); ROULEAUX PRESENT (NORMAL); SCAN/DIFF FINAL DIFF MANUAL
== END 2017-08-08 14:13 | disposition home or self-care (01) ==
LOC: PHED 12:14
DX: K27.9 Peptic ulcer, site unspecified, unspecified as acute or chronic, without hemorrhage or perforation (principal); D64.9 Anemia, unspecified; Z72.0 Tobacco use
CPT/HCPCS: 80048; 85007; 85027; 99283